=== PATIENT | female | born 1955 | race Caucasian/White ===

== ENCOUNTER → 2018-02-01 13:15 | Outpatient (CLI) | payer BC, SELFPAY ==
--- NOTE | 2018-02-01 13:18 | RAD_ITS ---
STUDY: X-RAY - LEFT HAND REASON FOR EXAM: Female, 62 years old. Chronic pain at the base of the thumb. TECHNIQUE: 3 view(s) of the hand. COMPARISON: None. FINDINGS: Normal radiocarpal articulation. Normal distal radioulnar joint. Normal visualized carpal bones. There is degenerative joint disease of the scaphotrapezium / trapezoid articulation. The remainder of the carpal articulations are normal. There is degenerative arthrosis of the carpometacarpal (CMC) articulation of the thumb. Normal second through fifth carpometacarpal joints. Normal metacarpi. There is minimal degenerative arthrosis of the first metacarpophalangeal (MCP) joints. Normal interphalangeal joint of the thumb. Normal proximal and distal phalanges of the thumb. Normal metacarpophalangeal joints of the second through fifth fingers. There is diffuse articular joint space narrowing of the proximal and distal interphalangeal joints of the second through fifth fingers, but without erosive changes or periarticular soft tissue swelling. Normal phalanges of the second through fifth fingers. The soft tissue structures are unremarkable. RAD/Hand Min 3 Views IMPRESSION: Degenerative changes of the hand and wrist most marked at the first carpometacarpal joint. Electronically Signed: Corwin Wright DO at 16:23 EST Tel [phone], Service support ,
--- NOTE | 2018-02-01 13:18 | RAD_ITS ---
STUDY: X-RAY - RIGHT HAND REASON FOR EXAM: Female, 62 years old. Pain at the base of the thumb. TECHNIQUE: 3 view(s) of the hand. COMPARISON: None. FINDINGS: There is joint space narrowing of the radiocarpal articulation consistent with degenerative arthrosis. Normal distal radioulnar joint. Normal visualized carpal bones. Normal carpal articulations There is severe degenerative arthrosis of the carpometacarpal articulation of the thumb with lateral subluxation of the first metacarpus. Normal second through fifth carpometacarpal joints. Normal metacarpi. Normal metacarpophalangeal joint of the thumb. Normal interphalangeal joint of the thumb. Normal proximal and distal phalanges of the thumb. Normal metacarpophalangeal joints of the second through fifth fingers. There is diffuse articular joint space narrowing of the proximal and distal interphalangeal joints of the second through fifth fingers, but without erosive changes or periarticular soft tissue swelling. Normal phalanges of the second through fifth fingers. The soft tissue structures are unremarkable. RAD/Hand Min 3 Views IMPRESSION: No acute fracture or dislocation. Severe degenerative changes at the base of the thumb. Electronically Signed: Collin Greco MD at 16:25 EST , Service support ,
== END ==
PROVIDERS: Family Provider Family Medicine; PCP Family Medicine; Referring Provider Orthopaedic Surgery; Visit Provider Orthopaedic Surgery
DX: M79.644 Pain in right finger(s) (principal); M79.645 Pain in left finger(s)
CPT/HCPCS: 73130

== ENCOUNTER → 2019-03-22 13:20 | Outpatient (CLI) | payer BC, SELFPAY ==
[2019-03-22 09:16] VITALS: BMI 23.9
[2019-03-24 13:37] LABS: HPV APTIMA, High Risk Negative (Negative)
== END ==
PROVIDERS: PCP Family Medicine; Referring Provider Nurse Practitioner Women's Health; Visit Provider Nurse Practitioner Women's Health
DX: Z12.4 Encounter for screening for malignant neoplasm of cervix (principal)
CPT/HCPCS: 87624; 88175; G0145

== ENCOUNTER → 2020-01-10 13:45 | Outpatient (CLI) | payer BC, SELFPAY ==
[2019-03-22 09:16] VITALS: BMI 23.9
== END ==
PROVIDERS: PCP Family Medicine; Referring Provider Family Medicine; Visit Provider Family Medicine
DX: Z20.828 Contact with and (suspected) exposure to other viral communicable diseases (principal)
CPT/HCPCS: 87635; U0003

== ENCOUNTER → 2020-04-22 09:43 | Outpatient (CLI) | payer BC, SELFPAY ==
[2019-03-22 09:16] VITALS: BMI 23.9
--- NOTE | 2020-04-22 09:48 | US_ITS ---
STUDY: SUPERFICIAL ULTRASOUND - POPLITEAL FOSSA. REASON FOR EXAM: Female, 64 years old. RIGHT KNEE PAIN X 3 MONTHS. INTERMITTENT PALPABLE LUMP TECHNIQUE: A superficial ultrasound was performed with real-time and static whittaker-scale imaging. COMPARISON: None. FINDINGS: Sonographic evaluation of the popliteal fossa was performed. No sonographic abnormality is seen. US/Ext Non Vasc Limited/Soft Tiss IMPRESSION: No sonographic abnormality is seen. Electronically Signed: Robert Ferrara MD at 12:49 EST , Service support ,
== END ==
PROVIDERS: PCP Family Medicine; Referring Provider Family Medicine; Visit Provider Family Medicine
DX: M71.21 Synovial cyst of popliteal space [Baker], right knee (principal)
CPT/HCPCS: 76882

== ENCOUNTER 2020-07-10 11:30 | Outpatient (RCR) | payer BC, SELFPAY ==
[2019-03-22 09:16] VITALS: BMI 23.9
--- NOTE | 2020-05-08 11:52 | HP.PTEVAL_ITS ---
Patient's Visit Information PARVIZ BARAHONA is a 64 year old F referred to Physical Therapy by Dr. Power Nair MD with a diagnosis of R knee pain.. Date of Evaluation: 05/08/20 Physical Therapist: Sarbjit Zavala DPT, OCS, CSCS - Visit Plan Frequency: 2-3x /Week Duration: 4-6 Weeks Plan: 2-3x/week for 3-6 weeks as needed for... 1. rollout and stretch to R ITB/HS/quad. US as needed nonthermal to lateral R patella. 2. strength VMO and hip stabs as toerated. 3. TENS and ice if painful at rest. activity modification, monitor for other knee problems. - Subjective R knee hurts for no good reason. Got twinge in back of leg in january with bending in yoga. Went to doctor saying as she may have a Bakers Cyst. US showed nothing. Went back to Dr. Frances and diagnosed with popliteus strain. Treated with rest and elevation and felt better at times. Normal exercise is walking on road for one hour, increased walking due to spring and went down hill for 3/4 mile and that may have made it worse(about three weeks ago). Took it easy for a while but was having a hard time walking on it. Today feels better than usual, some days she could not have walked in here. Dr. Frances said no hills and stay level ground. Walked 1/8 mile and then could hardly put weight through it. Also loves biking 15+miles and that does not cause any problem. Sleep is OK. 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 Needs to wrok on uneven ground and is very active. Now spends day sedentary and taxes and paper work. can stand at counter but puts weight through other leg. Can do yoga without twisting. - Pain L knee pain Pain Intensity (Out of 10): 0 Pain Intensity Range: 0, 9 Comment: anteriorly. - Objective Walks I but hesitant with R WB and slow, picks up speed as confidence improves. Trasfers slow But I. Stands with more weight through L side. Steps reciprocal but hesitant and painful R lateral knee up and down. Tender to touch lateral patella. - bounce home, varus, valgus and ant drawer. + patellar grind test with grinding. ITB R max tight and L mod tight. quads and HS min tight B. AROM hips and knees WFL and symmetrical withotu increased pain. Ankles fulla nd painfree. 4/5 strength quad and extension and HSC B without increased pain. 3_ hip abd, rotations strength. ankle strength 4+. Sensation WNl to gross light touch. - Balance Scores Functional Gait Assessment Score: 27 % Disability: 10.0000 - Goals Goal 1:: Walk and trasnfer without hesitation or pain increase. Goal Time Frame: 4-6 Weeks Goal 2:: I approp HEP to minimize further symptoms Goal Time Frame: 4-6 Weeks Goal 3:: Pt feel 90% better adn 1/10 pain at worst Goal Time Frame: 4-6 Weeks Goal 4:: LEFS 55/80 Goal Time Frame: 4-6 Weeks - Rehabilitation Potential Physical Therapy Diagnosis: R knee pain ITB, PFS Rehabilitation Potential: Questionable - Anticipated Interventions Patient/Client Instruction: Educate patient on: Condition, Plan of Care For the Purpose of:: To decrease pain, To increase ROM, To improve muscle performance and motor function, To increase tolerance to activity/condition/position, To improve ability of physical actions for home/community/work/leisure Therapeutic Exercise to Include: Strength training, Flexibilty training, Gait and locomotor training, Neuromotor development For the Purpose of:: To decrease pain, To improve muscle performance and motor function, To increase tolerance to activity/condition/position, To improve ability of physical actions for home/community/work/leisure Manual Therapy Techniques to Include: Passive ROM, Soft tissue mobilization For the Purpose of:: To decrease pain, To increase ROM TENS: Yes Cryotherapy (ice pack, ice massage): Yes Ultrasound (thermal/non thermal): Yes - nonthermal R patella lateal. For the Purpose of:: To decrease pain, To decrease swelling/inflammation Thank you for the opportunity to evaluate your patient. For Medicare and Medicare HMO plans, please review the plan of care and approve it. It will need to be FAXED BACK to us at [phone] for Medicare purposes. For Medicare only, by signing this I certify the plan of care. Please let me know if there are questions or concerns regarding this plan of care. Physician Signature:__ Date:
--- NOTE | 2020-06-03 11:00 | HP.PTREVAL_ITS ---
Dr. Power Nair MD, It has been my pleasure to treat PARVIZ BARAHONA over the last 7 visits for R knee pain.. Please see the progress note below for an update on the physical therapy plan of care! Subjective: R knee is doing better. Taking ibuprofen regularly. Sleeping is still the hardest to get comfortable. Doing exercises at home in am and early eveing adn feels better after stretching adn strengthening. No f/u scheduled with doctor Korey right now. Biking 20 miles without difficulty Objective/Function: Full aROM with some slight pain end R knee flexion. Walks without antalgia. Strength is 4+/5 in LE without pain. Steps show discomfort descending with R. ITB tenderness R >L. Coming along slowly. Plan Plan: 2xweek for 2 then 1x/week for 2 for... 1. continue roloout adn stretch to quad and ITB R, add hip flexor stretch to HEP. 2. Pt to do NWB strength at home and progress to WB trength R knee adn hip to toerance. 3. Verbally monitor walking program at home starting at 1/2 mile and progressing as pain allows. Approriate to [id number] with fair prognosis to current and new goal. Goals Goal 1:: Walk and trasnfer without hesitation or pain increase. Goal Time Frame: 4-6 Weeks Goal Progress: Goal Met Goal 2:: I approp HEP to minimize further symptoms Goal Time Frame: 4-6 Weeks Goal Progress: Goal Met Goal 3:: Pt feel 90% better adn 1/10 pain at worst Goal Time Frame: 4-6 Weeks Goal Progress: 50% Goal 4:: LEFS 55/80 Goal Time Frame: 4-6 Weeks Goal Progress: Progressing Goal 5:: Walk 2 miles without pain. Goal Time Frame: 4-6 Weeks Goal Progress: NEW GOAL Anticipated Interventions Patient/Client Instruction: Educate patient on: Condition, Plan of Care For the Purpose of:: To decrease pain, To increase ROM, To improve muscle performance and motor function, To increase tolerance to activity/c ondition/position, To improve ability of physical actions for home/community/work/leisure Therapeutic Exercise to Include: Strength training, Flexibilty training, Gait and locomotor training, Neuromotor development For the Purpose of:: To decrease pain, To improve muscle performance and motor function, To increase tolerance to activity/condition/position, To improve ability of physical actions for home/community/work/leisure Manual Therapy Techniques to Include: Passive ROM, Soft tissue mobilization For the Purpose of:: To decrease pain, To increase ROM TENS: Yes Cryotherapy (ice pack, ice massage): Yes Ultrasound (thermal/non thermal): Yes - nonthermal R patella lateal. For the Purpose of:: To decrease pain, To decrease swelling/inflammation Please do not hesitate to contact me at [phone] by phone or if you have questions or concerns regarding this new plan of care! Sincerely, Sarbjit Zavala, DPT, OCS, CSCS
--- NOTE | 2020-07-10 11:49 | HP.PTDCSUM ---
It has been my pleasure to treat PARVIZ BARAHONA referred by Dr. Power Nair MD, with the diagnosis of R knee pain. for a total of 15 visit(s). Discharge Date: 07/10/20 Please see the following information for a summary of their discharge status. Subjective: A lot better. Not much pain in the last week. Started back to yoga and doing it 2x/week. Has to modify some WB knee bending ex. Walking 3-6 miles a ttimes. Down hill can feel it a little bit especially if pulled by dog. Gaining strength. Strengthening regularly. L knee pain Pain Intensity (Out of 10): 0 R knee Pain Intensity (Out of 10): 0 % Improvement: 95 Objective/Function: Full aROM with symmetrical flexibility. Strength is 4+/5 B knee flex and ext without pain. Steps reciprocal without pain. walking normal. Goal 1:: Walk and trasnfer without hesitation or pain increase. Goal Progress: Goal Met Goal 2:: I approp HEP to minimize further symptoms Goal Progress: Goal Met Goal 3:: Pt feel 90% better adn 1/10 pain at worst Goal Progress: Goal Met Goal 4:: LEFS 55/80 Goal Progress: Goal Met Goal 5:: Walk 2 miles without pain. Goal Progress: Goal Met Plan: d/c to HEP If there are questions or concerns regarding this patient's physical therapy, please feel free to call me at [phone]. Thank you for the referral of this patient. Sincerely, Sarbjit Zavala, DPT, OCS, CSCS
== END 2020-07-10 19:00 | disposition home or self-care (01) ==
LOC: PT 11:30
PROVIDERS: PCP Family Medicine; Referring Provider Family Medicine; Visit Provider Family Medicine
DX: M25.569 Pain in unspecified knee (principal)
CPT/HCPCS: 97035; 97110; 97140; 97162; 97164; 97530

== ENCOUNTER → 2020-09-12 13:35 | Outpatient (CLI) | payer BC, SELFPAY ==
[2020-08-20 08:41] VITALS: BMI 25.2
--- NOTE | 2020-09-12 13:39 | BI_ITS ---
MAMMOGRAPHY - BILATERAL SCREENING REASON FOR EXAM: Female, 65 years old. Routine annual screening examination. PERTINENT HISTORY: Grandmother with breast cancer. Remote left breast biopsy. TECHNIQUE: Digital bilateral breast brad (3D mammographic acquisition) in the CC and MLO projections. 2-D mediolateral oblique (MLO) and craniocaudad (CC) views of both breasts were obtained. CAD: Full Field Digital Mammography with Computer Added Detection was performed. COMPARISON: Comparison is made with prior outside examination dated 01/30/2019. FINDINGS: Breast Composition: The breasts are heterogeneously dense, which may obscure small masses. There are no dominant masses or suspicious calcifications. Stable benign-appearing bilateral axillary lymph nodes. No other significant abnormalities are identified. There has been no significant change since the prior study. BI/SCRN MAMM (CAD)W/BRAD BILAT IMPRESSION: Stable bilateral screening mammogram. Yearly follow-up mammogram recommended. (A) ASSESSMENT CATEGORY: BIRADS Category 2: Benign. A letter regarding these results will be sent to the patient by the facility within 30 days. Approximately 10% of breast cancers are not detected by mammography. A normal mammogram should not delay biopsy of a clinically suspicious abnormality. [id number] Electronically Signed: Robert Ferrara MD at 14:38 EDT , Service support ,
--- NOTE | 2020-09-12 14:08 | BD_ITS ---
STUDY: DUAL ENERGY X-RAY ABSORPTIOMETRY / DXA REASON FOR EXAM: Female, 65 years old. Screening mother w osteoporosis TECHNIQUE: Bone Mineral Density (BMD) measurements of lumbar spine and bilateral hips were obtained. COMPARISON: Comparison is made with prior study of 05/14/2016. FINDINGS: Lumbar Spine (L1-L4): g/cm2 (0.926) / T-score (-0.8) / Z-score (0.8) Findings are suggestive of normal bone density with a low fracture risk. Left Femur Total: g/cm2 (0.879) / T-score (-0.5) / Z-score (0.7) Left Femoral Neck: g/cm2 (0.760) / T-score (-0.8) / Z-score (0.7) Right Femur Total: g/cm2 (0.844) / T-score (-0.8) / Z-score (0.4) Right Femoral Neck: g/cm2 (0.744) / T-score (-0.9) / Z-score (0.5) The T-Scores on the most recent prior examination were: Lumbar Spine (L1-L4): There has been worsening of bone density since the previous examination. Left Femur Total: which represents a worsening of 4.4%. Right Femur Total: which represents a worsening of 7.3%. BD/Dexa Bone Density Study IMPRESSION: The patient is considered normal as outlined below according to World Payam Organization (WHO) criteria with a low fracture risk. There has been worsening of bone density since the previous examination. Reference Information: The T-score is the number of standard deviations above or below the standard which is normal for young adults at their peak bone mineral density. The World Health Organization (WHO) interprets the T-scores as follows: Above -1 Normal bone density Between -1 and -2.5 Osteopenia Equal to / or below -2.5 Osteoporosis As a practical clinical guideline, osteopenia may be graded as follows: Mild -1 through -1.5 Moderate -1.6 through -2.0 Severe -2.1 through -2.4 The Z-score is the number of standard deviations above or below age-matched controls. A Z-score of less than -1.5 would be considered abnormal. References: 1. NIH Osteoporosis and Related Bone Diseases www osteo.org 2. International Society for Clinical Densitometry www iscd.org 3. National Osteoporosis Foundation www nof.org Electronically Signed: Robert Ferrara MD at 12:33 EDT , Service support ,
== END ==
PROVIDERS: PCP Family Medicine; Referring Provider Nurse Practitioner Women's Health; Visit Provider Nurse Practitioner Women's Health
DX: Z12.31 Encounter for screening mammogram for malignant neoplasm of breast (principal); Z13.820 Encounter for screening for osteoporosis; Z80.3 Family history of malignant neoplasm of breast; Z82.62 Family history of osteoporosis
CPT/HCPCS: 77063; 77067; 77080

== ENCOUNTER → 2022-04-07 | Outpatient (CLI) | payer MEDICARE, BC, SELFPAY ==
--- NOTE | 2022-04-07 11:06 | BI_ITS ---
MAMMOGRAPHY - BILATERAL SCREENING REASON FOR EXAM: Female, 66 years old. Routine annual screening examination. PERTINENT HISTORY: Grandmother with breast cancer. Remote left breast biopsy. TECHNIQUE: Digital bilateral breast brad (3D mammographic acquisition) in the CC and MLO projections. 2-D mediolateral oblique (MLO) and craniocaudad (CC) views of both breasts were obtained. CAD: Full Field Digital Mammography with Computer Added Detection was performed. COMPARISON: Comparison is made with prior examination of 09/12/2020. FINDINGS: Breast Composition: The breasts are heterogeneously dense, which may obscure small masses. There are no dominant masses or suspicious calcifications. Stable small benign-appearing bilateral axillary lymph nodes. No other significant abnormalities are identified. There has been no significant change since the prior study. BI/SCRN MAMM (CAD)W/BRAD BILAT IMPRESSION: Stable bilateral screening mammogram. Yearly follow-up mammogram recommended. (A) ASSESSMENT CATEGORY: BIRADS Category 2: Benign. A letter regarding these results will be sent to the patient by the facility within 30 days. Approximately 10% of breast cancers are not detected by mammography. A normal mammogram should not delay biopsy of a clinically suspicious abnormality. [id number] Electronically Signed: Robert Ferrara MD at 12:49 EST ,
== END | disposition home or self-care (01) ==
LOC: OPBI 11:05
PROVIDERS: PCP Family Medicine; Referring Provider Nurse Practitioner Women's Health; Visit Provider Nurse Practitioner Women's Health
DX: Z12.31 Encounter for screening mammogram for malignant neoplasm of breast (principal)
CPT/HCPCS: 77063; 77067

== ENCOUNTER 2022-11-17 07:59 | Outpatient (CLI) | payer MEDICARE, BC, SELFPAY ==
[2022-11-17 10:20] LABS: Hematocrit 43.3 % (37-47); Hemoglobin 13.5 g/dL (12.0-15.0)
[2022-11-17 10:50] LABS: Alanine Aminotransfer ALT/SGPT 27 U/L (13-56); Anion Gap 4 (5-15); BUN 20 mg/dL (7-18); Chloride 107 mmol/L (98-107); Cholesterol 194 mg/dL (200); Creatinine, Serum 0.77 mg/dL (0.55-1.02); EST Glomerular Filtration Rate 80 mL/min (>60); Est Glom Filt Rate - Afr Amer 96 mL/min (>60); Glucose 96 mg/dL (74-106); High Density Lipoprotein 73 mg/dL; Potassium 3.8 mmol/L (3.5-5.1); Sodium Level 140 mmol/L (136-145); Triglycerides 47 mg/dL; Very Low Density Lipoprotein 9 mg/dL (5-40)
[2022-11-17 11:28] LABS: Hepatitis C Antibody Non-Reactive (Nonreactive)
== END 2022-11-17 23:59 | disposition home or self-care (01) ==
LOC: MTLAB 08:01
PROVIDERS: PCP Family Medicine; Referring Provider Family Medicine; Visit Provider Family Medicine
DX: I34.1 Nonrheumatic mitral (valve) prolapse (principal); B19.20 Unspecified viral hepatitis C without hepatic coma; Z13.220 Encounter for screening for lipoid disorders
CPT/HCPCS: 36415; 80048; 80061; 84460; 85014; 85018; 86803

== ENCOUNTER → 2023-05-26 | Outpatient (CLI) | payer MEDICARE, BC, SELFPAY ==
--- NOTE | 2023-05-26 08:11 | BI_ITS ---
MAMMOGRAPHY - BILATERAL SCREENING REASON FOR EXAM: Female, 67 years old. Routine annual screening examination. PERTINENT HISTORY: Grandmother with breast cancer. Remote left excisional breast biopsy. TECHNIQUE: Digital bilateral breast brad (3D mammographic acquisition) in the CC and MLO projections. 2-D mediolateral oblique (MLO) and craniocaudad (CC) views of both breasts were obtained. CAD: Full Field Digital Mammography with Computer Added Detection was performed. COMPARISON: Comparison is made with prior study dated April 07, 2022 and September 12, 2020. FINDINGS: Breast Composition: The breasts are heterogeneously dense, which may obscure small masses. There are no dominant masses or suspicious calcifications. Stable small benign-appearing bilateral axillary lymph nodes. No other significant abnormalities are identified. There has been no significant change since the prior study. BI/SCRN MAMM (CAD)W/BRAD BILAT IMPRESSION: Stable bilateral screening mammogram. Yearly follow-up mammogram recommended. (A) ASSESSMENT CATEGORY: BIRADS Category 2: Benign. A letter regarding these results will be sent to the patient by the facility within 30 days. Approximately 10% of breast cancers are not detected by mammography. A normal mammogram should not delay biopsy of a clinically suspicious abnormality. [id number] Electronically Signed: Robert Ferrara MD at 9:35 EDT ,
== END | disposition home or self-care (01) ==
LOC: OPBI 08:11
PROVIDERS: PCP Family Medicine; Referring Provider Nurse Practitioner Women's Health; Visit Provider Nurse Practitioner Women's Health
DX: Z12.31 Encounter for screening mammogram for malignant neoplasm of breast (principal); Z80.3 Family history of malignant neoplasm of breast
CPT/HCPCS: 77063; 77067

== ENCOUNTER 2023-09-22 07:59 | Outpatient (CLI) | payer MEDICARE, BC, SELFPAY ==
[2023-09-22 10:15] LABS: Absolute Lymphocyte Count 1.86 X10^3/uL (0.83-4.51); Absolute Neutrophil Count 4.1 X10^3/uL (2.0-7.7); Basophil# 0.03 X10^3/uL; Basophil% 0.5 % (0-1); Eosinophil# 0.13 X10^3/uL; Hemoglobin 13.2 g/dL (12.0-15.0); Lymphocyte # 1.86 X10^3/ul (0.83-4.51); Lymphocyte % 28.2 % (19-41); Mean Corp Hgb Conc 31.4 g/dL (32-36); Mean Corpuscular Hgb 27.4 pg (27.0-32.0); Mean Corpuscular Volume 87.1 fL (81-99); Mean Platelet Vol. 10.2 fl (6.2-12.0); Monocyte# 0.46 X10^3/uL; NRBC Flagged by Analyzer 0 % (0-5); Platelet Count 301 K/mm3 (150-450); RBC Distribution Width CV 13.4 % (11.6-14.6); RBC Distribution Width SD 42.9 fl (35.1-43.9); Red Blood Count 4.82 M/mm3 (4.2-5.4); White Blood Count 6.6 K/mm3 (4.4-11.0)
[2023-09-22 10:42] LABS: ALB/GLOB Ratio 1.1 RATIO (0.9-2.4); AST(SGOT) 21 U/L (15-37); Alanine Aminotransfer ALT/SGPT 24 U/L (13-56); Albumin, Serum 3.8 g/dL (3.2-5.0); Alkaline Phosphatase 91 U/L (45-117); Anion Gap 6 (5-15); BUN 16 mg/dL (7-18); Calcium,Total 9.2 mg/dL (8.5-10.1); Chloride 107 mmol/L (98-107); Cholesterol 206 mg/dL (200); Creatinine, Serum 0.73 mg/dL (0.55-1.02); EST Glomerular Filtration Rate 85 mL/min (>60); Est Glom Filt Rate - Afr Amer 103 mL/min (>60); Globulin 3.5 g/dL (2.2-4.2); Glucose 101 mg/dL (74-106); High Density Lipoprotein 84 mg/dL; Potassium 3.9 mmol/L (3.5-5.1); Protein, Total 7.3 g/dL (6.4-8.2); Sodium Level 140 mmol/L (136-145); Triglycerides 64 mg/dL; Very Low Density Lipoprotein 13 mg/dL (5-40)
== END 2023-09-22 23:59 | disposition home or self-care (01) ==
LOC: MTLAB 08:01
PROVIDERS: PCP Family Medicine; Referring Provider Family Medicine; Visit Provider Family Medicine
DX: Z13.220 Encounter for screening for lipoid disorders (principal); I34.1 Nonrheumatic mitral (valve) prolapse; H02.30 Blepharochalasis unspecified eye, unspecified eyelid
CPT/HCPCS: 36415; 80053; 80061; 85025

== ENCOUNTER 2023-10-01 05:56 | Day surgery (SDC) | payer MEDICARE, BC, SELFPAY ==
[2023-10-01] VITALS (10 sets, daily range): BP systolic 129–157; BP diastolic 56–75; PULSE 58–91; RESP 16–18; TEMP 36.1–37.1; O2SAT 96–99; BMI 24.0
[2023-10-01] MEDS: Lactated Ringers 1,000 ML 15 ML IV (06:33)
--- NOTE | 2023-10-01 07:20 | PCM.PRE.AN2 ---
ASA Classification* ASA Classification ASA Classification: 2 Assessment & Plan Anesthesia* Anesthesia Assessment Anesthesia Assessment: Discussed sedation and/or anesthesia options, risks, benefits, and alternatives with patient/parents/legal guardian/POA. Questions invited. The patient/parents/legal guardian/POA seems to understand and agrees to proceed with anesthesia plan. Reviewed the physical assessment, medical history, allergy history and patient home medications list prior to surgery/procedure/anesthetic and documented any changes. Performed airway and anesthesia risk assessments. Anesthesia Type Anesthesia Type: General Anesthesia Focused Assessment* Temperature: 98.7 F Pulse Rate: 58 Blood Pressure: 157/56 Respiratory Rate: 16 Pulse Ox: 99 Airway Assessment Mouth opens: >3 cm Mallampati Score: II Focused Labs Anesthesia Preop lab: CBC WBC 6.6 K/mm3 (4.4-11.0) 09/22/23 08:03 RBC 4.82 M/mm3 (4.2-5.4) 09/22/23 08:03 Hgb 13.2 g/dL (12.0-15.0) 09/22/23 08:03 Hct 42.0 % (37-47) 09/22/23 08:03 Plt Count 301 K/mm3 (150-450) 09/22/23 08:03 CHEMISTRY Potassium 3.9 mmol/L (3.5-5.1) 09/22/23 08:03 Sodium 140 mmol/L (136-145) 09/22/23 08:03 BUN 16 mg/dL (7-18) 09/22/23 08:03 Creatinine 0.73 mg/dL (0.55-1.02) 09/22/23 08:03 Glucose 101 mg/dL (74-106) 09/22/23 08:03 COAG Pre-Assessment Diagnosis/Proposed Procedure Planned Operative Procedure(s): Bilateral Upper Blepharoplasty Anesthesia History Anesthesia History - business office specialist: Anesthesia History - business office specialist Hx Hospitalization No 09/17/23 09:26 Any Problems With Anesthesia No 09/17/23 09:26 Cholinesterase deficiency No 09/17/23 09:26 You/Your Family Experience No 09/17/23 09:26 fever (hyperthermia) with Relationship Recent Exposure to Contagious No 10/01/23 06:28 Disease Does patient have nerve No 09/17/23 09:26 stimulator Patient instructed to have device shut off --Does patient have Pacemaker No 10/01/23 06:28 or ICD? When Was Last Pacemaker Check QUESTION #4 FULL TEXT: You/Your Family Experience fever (hyperthermia) with Anesthesia Last Oral Intake Last Oral intake: Last Oral Intake NPO since Meds taken in AM with sips of water? Meds patient instructed to take am of surgery PONV PONV - business office specialist: PONV - business office specialist Female Yes 09/17/23 09:26 HX of Motion Sickness Yes 09/17/23 09:26 HX of N/V After Surgery No 09/17/23 09:26 Non-Smoker Yes 09/17/23 09:26 Duration of Surgery greater Yes 09/17/23 09:26 than 60 minutes Number of Risk Factors 4 09/17/23 09:26 PONV Score Severe Risk 09/17/23 09:26 Height & Weight Height & Weight: Anesthesia: Height & Weight Height 5 ft 3 in 10/01/23 06:28 Weight: 61.4 kg 10/01/23 06:28 Body Mass Index (BMI) 24.0 10/01/23 06:28 Respiratory Assessment Respiratory Assessment - business office specialist: Respiratory Tract Infection Hx - business office specialist Hx Respiratory Tract Infection No 09/17/23 09:26 STOP Sleep Apnea STOP Sleep Apnea - business office specialist: STOP Sleep Apnea - business office specialist Hx Hypertension No 09/17/23 09:26 Hx Sleep Apnea No 09/17/23 09:26 CPAP BIPAP Do you snore loudly (louder No 09/17/23 09:26 than talking or can be heard Do you often feel tired/ No 09/17/23 09:26 fatigued/ sleepy during daytime? Has anyone observed you stop No 09/17/23 09:26 breathing during sleep? STOP Results Negative 09/17/23 09:26 QUESTION #5 FULL TEXT : Do you snore loudly (louder than talking or can be heard through closed doors)? Tobacco Use History Tobacco Use History - business office specialist: Tobacco Use History - business office specialist Tobacco Use Smoking Status Never smoker 09/17/23 09:26 Hx Tobacco Use No 09/17/23 09:26 Years Smoking Packs Smoked per Day Smoking Cessation Date was within the last 15 years Hx Smoking Cessation Date Hx Smoking Cessation Counseling Hematologic Medial History Hematologic Hx - business office specialist: Hematologic Medical Hx - hydroblaster Hx of Blood Transfusion No 09/17/23 09:26 Hx of Transfusion in last 3 No 09/17/23 09:26 Months Date of Last Transfusion (if within last 3 months) Ever experience any problems No 09/17/23 09:26 with transfusion(s)? Specify any problems Hx of Preganancy in last 3 No 09/17/23 09:26 Months Nurse Filling Out Transfusion VCHRISTIN 09/17/23 09:26 & Questions: Date: 09/17/23 09/17/23 09:26 Time: 09:27 09/17/23 09:26 Patient unable to answer at this time (ie. confused, unrespo /Reproduction History /Reproductive History - business office specialist: /Reproductive Hx- business office specialist Hx Now Gestational Age (in weeks): EDC: Hx Hx Para Hx Section SAB No 09/17/23 09:26 Active Medications Active Medications: Current Medications Generic Name Dose Route Start Last Admin Trade Name Freq PRN Reason Stop Dose Admin Cefazolin Sodium 2 gm/ Sodium 110 mls @ 150 mls/hr 10/01/23 07:30 Chloride IV 10/01/23 08:13 PREOP ONE Lactated Ringer's 1,000 mls @ 15 mls/hr 10/01/23 06:30 10/01/23 06:33 IV 15 mls/hr .Q48H PACHECO Administration PFSH Medical History Wears glasses Wears contact lenses Post-menopausal Cancer Anxiety Alcohol use Arthritis Non-smoker History of echocardiogram Osteoarthritis Skin cancer Mitral valve problem Home Medications ?Medication ?Instructions ?Recorded ?Last Taken ?Type zinc acetate 50 mg (zinc) capsule 50 mg PO DAILY 06/09/23 09/12/23 History omega 7-wdy-yan-fish oil 1,200 mg 1 cap PO DAILY 09/17/23 09/12/23 History (144 mg-216 mg) capsule (Fish Oil) polypodium leucotomos extract 240 2,400 mg PO DAILY 09/17/23 09/28/23 History mg capsule (Heliocare) turmeric 400 mg capsule 400 mg PO DAILY 09/17/23 09/12/23 History cephalexin 500 mg capsule 500 mg PO BID #14 caps 09/21/23 Unknown Rx erythromycin 5 mg/gram (0.5 %) eye 1 applic ophthalmic (eye) DAILY 09/21/23 Unknown Rx ointment #3.5 grams Allergy/AdvReac Type Severity Reaction Status Date / Time No Known Allergies Allergy Verified 09/21/23 09:06 Family History Mother Arthritis Hypertension Osteoporosis Grandmother Breast cancer Surgical History Status post Mohs surgery H/O vein stripping H/O foot surgery H/O hand surgery Social History number of children: 3 current occupational status: employed 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 Review of Systems (Anesthesia) ROS Narrative System reviewed and no additional complaints, except as documented.
--- NOTE | 2023-10-01 07:25 | PCM.HP.BLA ---
History and Physical Date of Admission: 10/01/23 Pt with bilateral dermatochalasis with obstruction of visual jean. She presents for upper blepharoplasty. There are no changes to the H&P dated 09/10/23. Informed consent was obtained for bilateral upper blepharoplasty. Assessment & Plan Assessment/Plan (1) Decreased peripheral vision of both eyes: (2) Dermatochalasis of both upper eyelids: PLAN: Plan Pt for bilateral upper blepharoplasty.
[2023-10-01] MEDS: Cefazolin 2 GM in 0.9% Normal Saline (100mL Bag) 100 ML IV (07:30)
[2023-10-01] MEDS: Tetracaine 0.5% Ophthalmic Bottle 1 DRP (07:50)
[2023-10-01] MEDS: Povidone Iodine 30 ML Opthalmic Sol 1 DRP (07:55)
[2023-10-01] MEDS: Lidocaine 1% /Epi 1:100 (20ml) 20 ML Vial (07:58)
[2023-10-01] MEDS: Erythromycin Base 1 OPTH.TUBE 1 APPLIC (07:58)
[2023-10-01] MEDS: EPINEPHrine Nasal 0.1% 30 ML Bottle OPERA.SITE (07:58)
--- NOTE | 2023-10-01 09:11 | EX.PCM.DISCH ---
Discharge Instructions Dressing / Incision Additional Dressing/Incision Instructions:: Follow the instructions given in the office Follow Up Care Please Follow Up With: Virginie Alvarado MD When: as scheduled in 1 week Test Results: Test results from this visit will be discussed in further detail at your follow-up appointment, if applicable. Discharge Plan Admission Attending Provider: Virginie Alvarado Primary Care Provider: Sarbjit Frances Instructions Print Language: Yemeni Discharge Orders/Prescriptions Prescriptions: No Action zinc acetate 50 mg (zinc) capsule 50 mg PO DAILY cephalexin 500 mg capsule 500 mg PO BID Qty: 14 0RF erythromycin 5 mg/gram (0.5 %) ointment 1 applic ophthalmic (eye) DAILY Qty: 3.5 0RF turmeric 400 mg capsule 400 mg PO DAILY omega 0-pqb-ftd-fish oil [Fish Oil] 1,200 (144-216) mg capsule 1 cap PO DAILY Heliocare 240 mg capsule 2,400 mg PO DAILY Referrals / Follow Up: Sarbjit Frances MD [Primary Care Provider] - Disposition Disposition (needs filled in before D/C Order can be placed): Home, Self Care
--- NOTE | 2023-10-01 09:14 | OP.PCM_ITS ---
Problems Associated Problem List Diagnoses (1) Decreased peripheral vision of both eyes: (2) Dermatochalasis of both upper eyelids: Report of Operation Date of Procedure: 10/01/23 Pre-Operative Diagnosis: Bilateral upper eyelid dermatochalasis and obstruction of visual jean Post-Operative Diagnosis: Same Surgery/Procedure Performed:: Bilateral upper blepharoplasty Surgeon: Virginie Alvarado telephone technician: MIRTA MONTANEZmedical physics teacher Type of Anesthesia: General Drains: None Estimated Blood Loss (mL): Minimal Description of Procedure: Patient presents today for upper blepharoplasty. She has documentation of obstruction of visual jean and presents for blepharoplasty to improve this. She is marked in the preop holding area prior to surgery. Informed consent was obtained. The patient is brought to the operating room and placed under general anesthesia in the supine position. The face is prepped and draped in the usual sterile fashion. 1% Xylocaine with epinephrine is initially used to inject the proposed incision sites. Following this, the outlined skin is removed. Hemostasis is controlled with bipolar cautery. A strip of orbicularis oculi is removed. Again meticulous hemostasis is obtained. The wound is tacked together using fast-absorbing gut. Cool compresses are placed on the eye and we directed our attention to the opposite side where an identical procedure was performed. Following this, a 5-0 Prolene suture was used to approximate skin edges in a subcuticular fashion. The suture ends are affixed to the skin at the rastafarian and glabella with Mastisol and Steri-Strips. Cool compresses are placed on the eye during the procedure as well as following it. She tolerated the procedure well was taken to the recovery area in an awakening in stable condition. Needle and sponge counts are correct. Complications None Admit VTE Documentation VTE Mechan Device Prophylaxis: SCD's
--- NOTE | 2023-10-01 09:29 | PCM.POST.ANE ---
Anesthesia: Postop Eval I Current Vital Signs Temperature: 97 F Pulse Rate: 91 Blood Pressure: 148/70 Respiratory Rate: 18 Pulse Ox: 98 Assessment Airway patent: Yes Spontaneous unlabored respirations: Yes nausea: No Vomiting: No Anesthesia Complication: No Fluid Hydration Crystalloid volume administer (ml): 1,500 Total IV fluid infused: 1,500 Progress Note Anesthesia document: Postop Eval 1 completed: Yes
--- NOTE | 2023-10-01 09:46 | NURSING ---
4X4'S TO BILAT EYES CHANGED AND NEW COLD MOISTENED 4X4'S APPLIED.
--- NOTE | 2023-10-01 09:49 | POSTOPAN2_ITS ---
Anesthesia Postop Eval I Sum Postop Eval Completion status Anesthesia document: Postop Eval 1 completed: Yes Anesthesia Postop Eval I Summary Anesthesia Postop Eval I Summary: Anesthesia Postop Eval I: Assessment Summary Airway patent Yes 10/01/23 09:29 HAND [email or web address] Spontaneous unlabored Yes 10/01/23 09:29 HAND [email or web address] respirations Mental status nausea No 10/01/23 09:29 HAND [email or web address] Vomiting No 10/01/23 09:29 HAND [email or web address] Anesthesia Postop Eval I: Fluid Summary Crystalloid volume administer 1,500 10/01/23 09:29 HAND [email or web address].CSIR (ml) Colloids volume administered ( ml) Blood Product volume administered (ml) Total IV fluid infused 1,500 10/01/23 09:29 HAND [email or web address].CSIR Anesthesia Postop Eval I: Summary Notes Anesthesia Complication No 10/01/23 09:29 HAND [email or web address].CSIR Anesthesia Complication Comment: Post-operative progress note Anesthesia: Postop Eval II Evaluation Mental status: Awake Pain Level: 1 nausea: No Vomiting: No Complications Anesthesia Complication: No
--- NOTE | 2023-10-01 09:49 | PCM.POSTANE2 ---
Anesthesia Postop Eval I Sum Postop Eval Completion status Anesthesia document: Postop Eval 1 completed: Yes Anesthesia Postop Eval I Summary Anesthesia Postop Eval I Summary: Anesthesia Postop Eval I: Assessment Summary Airway patent Yes 10/01/23 09:29 ADOLESCENT [email or web address] Spontaneous unlabored Yes 10/01/23 09:29 ADOLESCENT [email or web address].CSIR respirations Mental status nausea No 10/01/23 09:29 ADOLESCENT [email or web address].CSIR Vomiting No 10/01/23 09:29 ADOLESCENT [email or web address].CSIR Anesthesia Postop Eval I: Fluid Summary Crystalloid volume administer 1,500 10/01/23 09:29 ADOLESCENT PSYCHIATRIST.CSIR (ml) Colloids volume administered ( ml) Blood Product volume administered (ml) Total IV fluid infused 1,500 10/01/23 09:29 ADOLESCENT [email or web address].CSIR Anesthesia Postop Eval I: Summary Notes Anesthesia Complication No 10/01/23 09:29 ADOLESCENT [email or web address].CSIR Anesthesia Complication Comment: Post-operative progress note Anesthesia: Postop Eval II Evaluation Mental status: Awake Pain Level: 1 nausea: No Vomiting: No Complications Anesthesia Complication: No
--- NOTE | 2023-10-01 09:59 | SUR.PHASEII ---
4X4S CHANGED TO BILAT EYES, NEW COLD MOISTENED 4X4S APPLIED
== END 2023-10-01 11:53 | disposition home or self-care (01) ==
LOC: SDC 06:00 → AC 06:02
PROVIDERS: PCP Family Medicine; Referring Provider Plastic Surgery; Visit Provider Plastic Surgery
PROC: (CPT 15823; principal; 2023-10-01 07:20)
DX: H02.834 Dermatochalasis of left upper eyelid (principal); H02.832 Dermatochalasis of right lower eyelid; H53.453 Other localized visual field defect, bilateral
CPT/HCPCS: 15823; 00103; J7120; J2405

== ENCOUNTER → 2023-12-21 | Outpatient (CLI) | payer MEDICARE, BC, SELFPAY ==
--- NOTE | 2023-12-21 14:05 | BD_ITS ---
STUDY: DUAL ENERGY X-RAY ABSORPTIOMETRY / DXA REASON FOR EXAM: Female, 68 years old. M85.89 TECHNIQUE: Bone Mineral Density (BMD) measurements of lumbar spine and bilateral hips were obtained. COMPARISON: Comparison is made with prior study dated September 12, 2020. FINDINGS: Lumbar Spine (L1-L4): g/cm2 (1.004) / T-score (-0.4) / Z-score (1.5) Findings are suggestive of normal bone density with a low fracture risk. Left Femur Total: g/cm2 (0.848) / T-score (-0.8) / Z-score (0.6) Left Femoral Neck: g/cm2 (0.780) / T-score (-0.6) / Z-score (1.0) Right Femur Total: g/cm2 (0.837) / T-score (-0.9) / Z-score (0.5) Right Femoral Neck: g/cm2 (0.745) / T-score (-0.9) / Z-score (0.7) The T-Scores on the most recent prior examination were: Lumbar Spine (L1-L4): There has been improvement of bone density since the previous examination. Left Femur Total: which represents a worsening of 3.5%. Right Femur Total: which represents a worsening of 0.9%. BD/Dexa Bone Density Study IMPRESSION: The patient is considered normal as outlined below according to World [employer] Organization (WHO) criteria with a low fracture risk. There has been worsening of bone density since the previous examination. Reference Information: The T-score is the number of standard deviations above or below the standard which is normal for young adults at their peak bone mineral density. The World Health Organization (WHO) interprets the T-scores as follows: Above -1 Normal bone density Between -1 and -2.5 Osteopenia Equal to / or below -2.5 Osteoporosis As a practical clinical guideline, osteopenia may be graded as follows: Mild -1 through -1.5 Moderate -1.6 through -2.0 Severe -2.1 through -2.4 The Z-score is the number of standard deviations above or below age-matched controls. A Z-score of less than -1.5 would be considered abnormal. References: 1. NIH Osteoporosis and Related Bone Diseases www osteo.org 2. International Society for Clinical Densitometry www iscd.org 3. National Osteoporosis Foundation www nof.org Electronically Signed: Robert Ferrara MD at 14:32 EDT ,
== END | disposition home or self-care (01) ==
PROVIDERS: PCP Family Medicine; Referring Provider Family Medicine; Visit Provider Family Medicine
DX: M85.89 Other specified disorders of bone density and structure, multiple sites (principal)
CPT/HCPCS: 77080

== ENCOUNTER → 2024-11-23 | Outpatient (CLI) | payer MEDICARE, BC, SELFPAY ==
--- OUTSIDE RECORDS SUMMARY | 2024-11-23 08:28 | XMS RPT_ITS | CCD ---
Author Organization [facility] ion [facility] Care Team Providers Care Corner Brace Block Machine Operator Name Role Phone Emanuel ALEJANDRO, Faraz Sexton Unavailable [phone] ONESIMO GIANG Attending Unavailable ONESIMO GIANG Primary Care Unavailable ONESIMO GIANG Admitting Unavailable OENSIMO GIANG Attending Unavailable ONESIMO GIANG Primary Care Unavailable ONESIMO GIANG Admitting Unavailable MD Juan Daniel Sarbjit Primary Care Provider Unavailbroderick Frances MD Sarbjit Referring Provider Unavailable Yelitza LAWN SERVICE SUPERVISOR, LAWN SERVICE SUPERVISOR-C Lacey Attending Provider Dr. Sarbjit Frances Primary Care Provider [phone] Dr. Sarbjit Frances Referring Provider Dr. Virginie Alvarado Attending Provider Virginie Alvarado Referring Unavailable Virginie Alvarado Consulting Unavailable MychalazoVirginie larry Attending Unavailable Frances, Sarbjit Primary Care Unavailable Frances, Sarbjit Primary Care Unavailable MychalazoVirginie larry Attending Unavailable Frances, Sarbjit Referring Unavailable Frances, Sarbjit Primary Care Unavailable MychalazoPan larrya Attending Unavailable Frances, Sarbjit Referring Unavailable MychalazoPan larrya Attending Unavailable Frances, Sarbjit Referring Unavailable GhazoulVirginie Attending Unavailable Frances, Sarbjit Referring Unavailable Frances, Sarbjit Primary Care Unavailable Ghazoul, Virginie Referring Unavailable MychalazoPan larrya Attending Unavailable Frances, Sarbjit Primary Care Unavailable Lacey Torre Attending Unavailable Lacey Torre Referring Unavailable Frances, Sarbjit Primary Care Unavailable Frances, Sarbjit Attending Unavailable Frances, Sarbjit Referring Unavailable Frances, Sarbjit Attending Unavailable Frances, Sarbjit Referring Unavailable Frances, Sarbjit Primary Care Unavailable Frances, Sarbjit Primary Care Unavailable Virginie Alvarado Attending Unavailable Sarbjit Frances Referring Unavailable Sarbjit Frances Primary Care Unavailable Lacey Torre Attending Unavailable Sarbjit Frances Referring Unavailable Medications Current Medications Medication Drug Class(es) Dates Sig (Normalized) Sig (Original) terbinafine 250 mg oral tablet (1 source) Allylamine Antifungal Start: 04-27-2023 take 250 mg by mouth once daily Terbinafine Hcl Active 250 MG PO DAILY April 27, 2023 1:00am Completed/Discontinued Medications Medication Drug Class(es) Dates Sig (Normalized) Sig (Original) NICOTINAMIDE RIBOSIDE 250MG AND PTEROSTILBENE 50MG (1 source) Start: 02-08-2018 NICOTINAMIDE RIBOSIDE 250MG AND PTEROSTILBENE 50MG as directed Bhavana Allan LPN calcium carbonate 1500 mg oral tablet (2 sources) Start: 03-17-2022 End: 04-27-2023 take 1 tablet by mouth once daily Calcium Carbonate (Calcium 600) 600 mg calcium (1,500 mg) tablet Discontinued 600 MG PO DAILY March 17, 2022 1:00am April 27, 2023 3:09pm cholecalciferol 0.05 mg oral capsule (3 sources) Vitamin D Start: 08-20-2020 End: 04-27-2023 take 50 ug by mouth once daily Cholecalciferol (Vitamin D3) Discontinued 50 MCG PO DAILY August 20, 2020 12:00am April 27, 2023 3:09pm Start: 02-08-2018 VITAMIN D3 400 UNIT TABS 1 tablet daily CHOLECALCIFEROL [id number] Bhavana Allan LPN Polypodium Leucotomos (1 source) Start: 02-08-2018 POLYPODIUM LISA COTOMOS 240MG as directed Bhavana Allan LPN polypodiumleukolomas (2 sources) Start: 08-20-2020 End: 04-27-2023 polypodiumleukolomas Discont inued PO August 20, 2020 12:00am April 27, 2023 3:09pm Start: 08-20-2020 polypodiumleuk olomas Active PO August 19, 2020 11:00pm Pterostilbene (2 sources) Start: 03-17-2022 End: 04-27-2023 Pterostilbene Discontinued M G PO March 17, 2022 1:00am April 27, 2023 3:09pm Start: 03-17-2022 Pterostilbene Active MG PO March 17, 2022 12:00am RESVERATROL CAPS (1 source) Start: 02-08-2018 RESVERATROL CA PS 1 capsule daily (500mg) RESVERATROL CAPS [id number] Bhavana Allan ELECTRIC FRYING PAN REPAIRER Zinc (2 sources) Start: 08-20-2020 End: 04-27-2023 take 50 mg by mouth once daily Zinc Discontinued 50 MG PO DAILY August 20, 2020 12:00am April 27, 2023 3:09pm Start: 08-20-2020 take 50 mg by mouth once daily Zinc Active 50 MG PO DAILY August 19, 2020 11:00pm Problems Active Problems Problem Classification Problem Date Documented Date Episodic/Chronic Blindness and vision defects (4 sources) Decreased peripheral vision; Translations: [Other localized visual field defect, bilateral] Onset: 09-21-2023 04-27-2023 Episodic Menopausal disorders (2 sources) Atrophic vaginitis; Translations: [Postmenopausal atrophic vaginitis] 08-20-2020 Chronic Osteoarthritis (2 sources) Unilateral primary osteoarthritis of first carpometacarpal joint, right hand; Translations: [Unilateral primary osteoarthritis of first carpometacarpal joint, left hand] Onset: 02-10-2018 02-10-2018 Chronic Other bone disease and musculoskeletal deformities (1 source) Other specified disorders of bone density and structure, multiple sites; Translations: [Other specified disorders of bone density and structure, multiple sites] Onset: 01-11-2024 Episodic Other eye disorders (4 sources) Dermatochalasis of right upper eyelid; Translations: [Dermatochalasis of both upper eyelids] Onset: 09-21-2023 04-27-2023 Episodic Other eye disorders (2 sources) Dermatochalasis of left upper eyelid; Translations: [Dermatochalasis of left upper eyelid] Onset: 10-18-2023 Episodic Other screening for suspected conditions (not mental disorders or infectious disease) (2 sources) Encounter for screening for lipoid disorders; Translations: [Encounter for screening mammogram for malignant neoplasm of breast] Onset: 06-01-2023 Episodic Residual codes; unclassified (2 sources) Family history of osteoporosis; Translations: [Family history of osteoporosis] 08-20-2020 Episodic Past or Other Problems Problem Classification Problem Date Documented Da te Episodic/Chronic Unclassified (1 source) Problem Results Test Name Value Interpretation Reference Range Facility Dexa Bone Density Studyon Dexa Bone Density Study [facility] Imaging Services [address] [place] [address] Dexa Bone Density Study MR#: [id number] Acct: [id number] Name: PARVIZ CORREA Rep #: [id number] : 1955 F 68 From: Robert bowman MD PCP: Dr. Sarbjit Frances MD Status: [facility] Study: Dexa Bone Density Study Date of Exam: 12/21/23 Exam# [id number] Ordering Dr: Sarbjit Frances MD [id number] STUDY: DUAL ENERGY X-RAY ABSORPTIOMETRY / DXA REASON FOR EXAM: Female, 68 years old. M85.89 TECHNIQUE: Bone Mineral Density (BMD) measurements of lumbar spine and bilateral hips were obtained. COMPARISON: Comparison is made with prior study dated September 12, 2020. FINDINGS: Lumbar Spine (L1-L4): g/cm2 (1.004) / T-score (-0.4) / Z-score (1.5) Findings are suggestive of normal bone density with a low fracture risk. Left Femur Total: g/cm2 (0.848) / T-score (-0.8) / Z-score (0.6) Left Femoral Neck: g/cm2 (0.780) / T-score (-0.6) / Z-score (1.0) Right Femur Total: g/cm2 (0.837) / T-score (-0.9) / Z-score (0.5) Right Femoral Neck: g/cm2 (0.745) / T-score (-0.9) / Z-score (0.7) The T-Scores on the most recent prior examination were: Lumbar Spine (L1-L4): There has been improvement of bone density since the previous examination. Left Femur Total: which represents a worsening of 3.5%. Right Femur Total: which represents a worsening of 0.9%. BD/Dexa Bone Density Study IMPRESSION: The patient is considered normal as outlined below according to World Payam Organization (WHO) criteria with a low fracture risk. There has been worsening of bone density since the previous examination. Reference Information: The T-score is the number of standard deviations above or below the standard which is normal for young adults at their peak bone mineral density. The World Health Organization (WHO) interprets the T-scores as follows: Above -1 Normal bone density Between -1 and -2.5 Osteopenia Equal to / or below -2.5 Osteoporosis As a practical clinical guideline, osteopenia may be graded as follows: Mild -1 through -1.5 Moderate -1.6 through -2.0 Severe -2.1 through -2.4 The Z-score is the number of standard deviations above or below age-matched controls. A Z-score of less than -1.5 would be considered abnormal. References: 1. NIH Osteoporosis and Related Bone Diseases www osteo.org 2. International Society for Clinical Densitometry www iscd.org 3. National Osteoporosis Foundation www nof.org Electronically Signed: Robert Ferrara MD at 14:32 EDT Reading Location ID and State: [facility] / [place] , Service support , CC: Dr. Sarbjit Frances MD Counseling Services Manager: Signed Normal [facility] Plastic Surgery Visit Report on 10-19-2023 Plastic Surgery Visit Report [facility] Plastic Reconstructive Surgery [address], [address] [place], [place] [address] OFFICE VISIT Date of Service: 10/19/23 MR#: [id number] Acct: [id number] Name: PARVIZ CORREA Rep #: [id number] : 1955 Provider: Dr. Virginie larry MD Age/Sex: 68/F [place] [facility] Status: Signed Intake Vital Signs 06/09/23 11:25 10/12/23 09:00 10/19/23 09:16 Height 53 ft 5 ft 3 in 5 ft 3 in Weight: 136 lb 6 oz BMI 24.1 BP 143/64 H Blood Pressure Location Lt brachial Position Sitting Respiration 16 Pulse 58 L Temp 97.6 F L Temp Source Oral Pulse Oximetry (%) 96 Oxygen Delivery Method room air Intake Visit Reasons: POST #2, KISHORE UPPER BLEPH Chief Complaint: post kishore upper bleph Is patient in pain?: No Allergies No Known Allergies Allergy (Verified 10/19/23 09:20) Medications ???Medication ???Instructions ???Recorded ???Confirmed ???Type zinc acetate 50 mg (zinc) capsule 50 mg PO DAILY 06/09/23 10/19/23 History omega 7-bbq-nmi-fish oil 1,200 mg 1 cap PO DAILY 09/17/23 10/19/23 History (144 mg-216 mg) capsule (Fish Oil) polypodium leucotomos extract 240 2,400 mg PO DAILY 09/17/23 10/19/23 History mg capsule (Heliocare) turmeric 400 mg capsule 400 mg PO DAILY 09/17/23 10/19/23 History erythromycin 5 mg/gram (0.5 %) eye 1 applic ophthalmic (eye) DAILY 09/21/23 10/19/23 Rx ointment #3.5 grams Have you fallen in the past year?: No Nurse's Note: pt here for post op upper bleph, interested in botox. Subjective Details: Parviz comes in for recheck of her upper blepharoplasty. She denies any problems. Objective Details: The upper eyelid incisions are well-approximated. There is some mild swelling that is still present. She is happy with results. There is a small keratosis on the medial aspect of the left eyelid which had been present prior to surgery. Use of an eye cream daily was reviewed with her including application from medial to lateral. Antiaging products and vitamins were also discussed. The patient had other questions regarding aesthetic procedures such as Botox and Restylane. I reviewed these procedures with her including the expected outcome and longevity of the products. She will consider the above and let us know in the event she decides to proceed. 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 Female Reproductive History Menstrual Ab spontaneous: 1 Assessment and Plan (No Qualifiers) Assessment and Plan (1) Status post blepharoplasty: Status: Acute Plan Details Additional Comments: I will see her back as needed and she is encouraged to call with any problems. 10/19/23 9488 Date Virginie Alvarado MD Cosigner Signature: Date (if applicable) CC: Normal [facility] Plastic Surgery Visit Report on 10-12-2023 Plastic Surgery Visit Report [facility] Plastic Reconstructive Surgery [address], [address] [place], [place] [id number] OFFICE VISIT Date of Service: 10/12/23 MR#: [id number] Acct: [id number] Name: PARVIZ CORREA Rep #: [id number] : 1955 Provider: Dr. Virginie larry MD Age/Sex: 68/F [place] [facility] Status: Signed Intake Vital Signs 06/09/23 11:25 10/01/23 06:28 10/12/23 09:00 Height 53 ft 5 ft 3 in 5 ft 3 in Weight: 136 lb BMI 24.0 BP 135/75 H Blood Pressure Location Rt brachial Position Sitting Respiration 16 Pulse 64 Temp 97.6 F L Temp Source Oral Pulse Oximetry (%) 98 Oxygen Delivery Method room air Intake Visit Reasons: POST #1 KISHORE UPPER BLEPH Chief Complaint: post kishore upper bleph Is patient in pain?: No Allergies No Known Allergies Allergy (Verified 10/12/23 09:03) Medications ???Medication ???Instructions ???Recorded ???Confirmed ???Type zinc acetate 50 mg (zinc) capsule 50 mg PO DAILY 06/09/23 10/01/23 History omega 9-nko-wcb-fish oil 1,200 mg 1 cap PO DAILY 09/17/23 09/17/23 History (144 mg-216 mg) capsule (Fish Oil) polypodium leucotomos extract 240 2,400 mg PO DAILY 09/17/23 10/01/23 History mg capsule (Heliocare) turmeric 400 mg capsule 400 mg PO DAILY 09/17/23 10/01/23 History erythromycin 5 mg/gram (0.5 %) eye 1 applic ophthalmic (eye) DAILY 09/21/23 09/21/23 Rx ointment #3.5 grams Have you fallen in the past year?: No Nurse's Note: pt here for post op upper bleph-questions about showering Subjective Details: Parviz comes in for recheck of the bilateral blepharoplasty done approximately 10 days ago. She denies any problems. She states she had minimal pain. Objective Details: The incisions are well-approximated. There is no evidence of infection. The sutures are removed. A few of the aligning fast-absorbing gut were also removed. She is instructed to apply the ointment from medial to lateral daily. She can begin to drive and shower. I will see her back in a week for recheck. 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 Female Reproductive History Menstrual Ab spontaneous: 1 Assessment and Plan (No Qualifiers) Assessment and Plan (1) Status post blepharoplasty: Status: Acute Plan Details Additional Comments: She is to follow-up next week. Precautions regarding activity were reviewed. 10/12/23 1625 Date Virginie Alvarado MD Cosigner Signature: Date (if applicable) [facility] Discharge Instruction [facility] Medical Records Department [address] [place] [address] Instructions for Home/Discharge Instructions 10/01/23 0911 MR#: [id number] Acct: [id number] Name: PARVIZ CORREA Rep #: [id number] : 1955 68 From: Virginie Alvarado MD PCP: Dr. Sarbjit Frances MD [facility] Discharge Instructions Dressing / Incision Additional Dressing/Incision Instructions:: Follow the instructions given in the office Follow Up Care Please Follow Up With: Virginie Alvarado MD When: as scheduled in 1 week Test Results: Test results from this visit will be discussed in further detail at your follow-up appointment, if applicable. Discharge Plan Admission Attending Provider: Virginie Alvarado Primary Care Provider: Sarbjit Frances Instructions Print Language: Korean Discharge Orders/Prescriptions Prescriptions: No Action zinc acetate 50 mg (zinc) capsule 50 mg PO DAILY cephalexin 500 mg capsule 500 mg PO BID Qty: 14 0RF erythromycin 5 mg/gram (0.5 %) ointment 1 applic ophthalmic (eye) DAILY Qty: 3.5 0RF turmeric 400 mg capsule 400 mg PO DAILY omega 9-byi-knv-fish oil [Fish Oil] 1,200 (144-216) mg capsule 1 cap PO DAILY Heliocare 240 mg capsule 2,400 mg PO DAILY Referrals / Follow Up: Sarbjit Frances MD [Primary Care Provider] - Disposition Disposition (needs filled in before D/C Order can be placed): Home, Self Care 10/01/23919 Virginie Alvarado MD CC: Dr. Sarbjit Frances MD Signed Normal [facility] MR/POSTOP.ANEon 10-01-2023 MR/POSTOP.[facility] Medical Records Department [address] [place] [address] Anesthesia Postop Eval I 10/01/23928 MR#: [id number] Acct: [id number] Name: PARVIZ CORREA Rep #: [id number] : 1955 68 From: Lilly Echevarria PCP: Dr. Sarbjit Frances MD Status:[facility] Y Race: C Location: [place] [address]- Anesthesia: Postop Eval I Current Vital Signs Temperature: 97 F Pulse Rate: 91 Blood Pressure: 148/70 Respiratory Rate: 18 Pulse Ox: 98 Assessment Airway patent: Yes Spontaneous unlabored respirations: Yes nausea: No Vomiting: No Anesthesia Complication: No Fluid Hydration Crystalloid volume administer (ml): 1,500 Total IV fluid infused: 1,500 Progress Note Anesthesia document: Postop Eval 1 completed: Yes 10/01/23928 Date Lilly Haileignalex Signature: Date CC: Signed Normal [facility] [id number] 10-01-2023 [facility] Medical Records Department [address] [place] [address] Anesthesia Postop Eval II 10/01/2349 MR#: [id number] Acct: [id number] Name: PARVIZ CORREA ZIYAD Rep #: [id number] : 1955 68 From: Freddie Harvey MD PCP: Dr. Sarbjit Frances MD Status:[facility] Y Race: C Location: [place] [address] Anesthesia Postop Eval I Sum Postop Eval Completion status Anesthesia document: Postop Eval 1 completed: Yes Anesthesia Postop Eval I Summary Anesthesia Postop Eval I Summary: Anesthesia Postop Eval I: Assessment Summary Airway patent Yes 10/01/23 09:29 CHECKER [email or web address].CSIR Spontaneous unlabored Yes 10/01/23 09:29 CHECKER [email or web address].CSIR respirations Mental status nausea No 10/01/23 09:29 CHECKER [email or web address].CSIR Vomiting No 10/01/23 09:29 CHECKER [email or web address].CSIR Anesthesia Postop Eval I: Fluid Summary Crystalloid volume administer 1,500 10/01/23 09:29 CHECKER [email or web address].CSIR (ml) Colloids volume administered ( ml) Blood Product volume administered (ml) Total IV fluid infused 1,500 10/01/23 09:29 CHECKER [email or web address].CSIR Anesthesia Postop Eval I: Summary Notes Anesthesia Complication No 10/01/23 09:29 CHECKER [email or web address].CSIR Anesthesia Complication Comment: Post-operative progress note Anesthesia: Postop Eval II Evaluation Mental status: Awake Pain Level: 1 nausea: No Vomiting: No Complications Anesthesia Complication: No 10/01/23 0949 Date Freddie Harvey MD Cosigner Signature: Date CC: Signed Normal [facility] Operative Reporton 4 Operative Report [facility] Medical Records Department [address] [place] [address] Operative Report 10/01/2314 MR#: [id number] Acct: [id number] Name: PARVIZ CORREA ZIYAD Rep #: [id number] : 1955 68 From: Virginie Alvarado MD PCP: Dr. Sarbjit Frances MD Status:[facility] Location: [place] [address] Problems Associated Problem List Diagnoses (1) Decreased peripheral vision of both eyes: (2) Dermatochalasis of both upper eyelids: Report of Operation Date of Procedure: 10/01/23 Pre-Operative Diagnosis: Bilateral upper eyelid dermatochalasis and obstruction of visual jean Post-Operative Diagnosis: Same Surgery/Procedure Performed:: Bilateral upper blepharoplasty Surgeon: Virginie Alvarado plant maintenance manager: MIRTA MONTANEZgreen tire inspector Type of Anesthesia: General Drains: None Estimated Blood Loss (mL): Minimal Description of Procedure: Patient presents today for upper blepharoplasty. She has documentation of obstruction of visual jean and presents for blepharoplasty to improve this. She is marked in the preop holding area prior to surgery. Informed consent was obtained. The patient is brought to the operating room and placed under general anesthesia in the supine position. The face is prepped and draped in the usual sterile fashion. 1% Xylocaine with epinephri ne is initially used to inject the proposed incision sites. Following this, the outlined skin is removed. Hemostasis is controlled with bipolar cautery. A strip of orbicularis oculi is removed. Again meticulous hemostasis is obtained. The wound is tacked together using fast-absorbing gut. Cool compresses are placed on the eye and we directed our attention to the opposite side where an identical procedure was performed. Following this, a 5-0 Prolene suture was used to approximate skin edges in a subcuticular fashion. The suture ends are affixed to the skin at the orthodox and glabella with Mastisol and Steri-Strips. Cool compresses are placed on the eye during the procedure as well as following it. She tolerated the procedure well was taken to the recovery area in an awakening in stable condition. Needle and sponge counts are correct. Complications None Admit VTE Documentation VTE Mechan Device Prophylaxis: SCD's 10/01/23 09 Cosigner Signature (if applicable): CC: Dr. Sarbjit Frances MD; Dr. Virginie Alvarado MD Signed Normal [facility] CBC W/Diff, Automatedon 08-30 Absolute Lymph 1.86 X10 3/uL Normal 0.83-4.51 [facility] Comment on above: Order Comment: Order Date: 09/10/23 Order Info: 018- - CBCD Performed By: #### L 100.0100 #### [facility] [address] [place], [address] Absolute Neut 4.1 X10 3/uL Normal 2.0-7.7 [facility] Comment on above: Order Comment: Order Date: 09/10/23 Order Info: 018- - CBCD Performed By: #### L 100.0100 #### [facility] [address] [place], [address] Basophils/100 WBC (Bld) 0.5 % Normal 0-1 [facility] Comment on above: Order Comment: Order Date: 09/10/23 Order Info: 018- - CBCD Performed By: #### L 100.0100 #### [facility] [address] [place], [address] Eosinophils/100 WBC (Bld) 2.0 % Normal 0-5 [facility] Comment on above: Order Comment: Order Date: 09/10/23 Order Info: 0184-1 - CBCD Performed By: #### L 100.0100 #### [facility] [address] [place], [address] Erythrocyte distribution width (RBC) [Ratio] 13.4 % Normal 11.6-14.6 [facility] Comment on above: Order Comment: Order Date: 09/10/23 Order Info: 0184- - CBCD Performed By: #### L 100.0100 #### [facility] [address] [place], [address] Hematocrit (Bld) [Volume fraction] 42.0 % Normal 37-47 [facility] Comment on above: Order Comment: Order Date: 09/10/23 Order Info: 0184- - CBCD Performed By: #### L 100.0100 #### [facility] [address] [place], [address] Hemoglobin (Bld) [Mass/Vol] 13.2 g/dL Normal 12.0-15.0 [facility] Comment on above: Order Comment: Order Date: 09/10/23 Order Info: 0184- - CBCD Performed By: #### L 100.0100 #### [facility] [address] [place], [address] IG% 0.300 Normal 0.0-0.9 [facility] Comment on above: Order Comment: Order Date: 09/10/23 Order Info: 0184- - CBCD Result Comment: IG% - Immature Granulocytes (promyelocytes, myelocytes and metamyelocytes) > 1% indicates that a LEFT SHIFT is Present. Performed By: #### L 100.0100 #### [facility] [address] [place], [address] Lymphocytes/100 WBC (Bld) 28.2 % Normal 19-41 [facility] Comment on above: Order Comment: Order Date: 09/10/23 Order Info: 0184-1 - CBCD Performed By: #### L 100.0100 #### [facility] [address] [place], [address] MCH (RBC) [Entitic mass] 27.4 pg Normal 27.0-32.0 [facility] Comment on above: Order Comment: Order Date: 09/10/23 Order Info: 4-1 - CBCD Performed By: #### L 100.0100 #### [facility] [address] [place], [address] MCHC (RBC) [Mass/Vol] 31.4 g/dL Low 32-36 [facility] Comment on above: Order Comment: Order Date: 09/10/23 Order Info: 183- - CBCD Performed By: #### L 100.0100 #### [facility] [address] [place], [address] MCV (RBC) [Entitic vol] 87.1 fL Normal 81-99 [facility] Comment on above: Order Comment: Order Date: 09/10/23 Order Info: 018-1 - CBCD Performed By: #### L 100.0100 #### [facility] [address] [place], [address] Monocytes/100 WBC (Bld) 7.0 % Normal 0-10 [facility] Comment on above: Order Comment: Order Date: 09/10/23 Order Info: 0184-1 - CBCD Performed By: #### L 100.0100 #### [facility] [address] [place], [address] Neutrophils/100 WBC (Bld) 62.0 % Normal 47-70 [facility] Comment on above: Order Comment: Order Date: 09/10/23 Order Info: 0184-1 - CBCD Performed By: #### L 100.0100 #### [facility] [address] [place], [address] Nucleated RBC (Bld) [#/Vol] 0 10*3/uL Normal 0-5 [facility] Comment on above: Order Comment: Order Date: 09/10/23 Order Info: 0184-1 - CBCD Performed By: #### L 100.0100 #### [facility] [address] [place], [address] Platelet mean volume (Bld) [Entitic vol] 10.2 fL Normal 6.2-12.0 [facility] Comment on above: Order Comment: Order Date: 09/10/23 Order Info: 0184-1 - CBCD Performed By: #### L 100.0100 #### [facility] [address] [place], [address] Platelets (Bld) [#/Vol] 301 10*3/uL Normal 150-450 [facility] Comment on above: Order Comment: Order Date: 09/10/23 Order Info: 018-1 - CBCD Performed By: #### L 100.0100 #### [facility] [address] [place], [address] RBC (Bld) [#/Vol] 4.82 10*6/uL Normal 4.2-5.4 [facility] Comment on above: Order Comment: Order Date: 09/10/23 Order Info: 0184-1 - CBCD Performed By: #### L 100.0100 #### [facility] [address] [place], [address] RDW SD 42.9 fl Normal 35.1-43.9 [facility] Comment on above: Order Comment: Order Date: 09/10/23 Order Info: 0184-1 - CBCD Performed By: #### L 100.0100 #### [facility] [address] [place], [address] WBC (Bld) [#/Vol] 6.6 10*3/uL Normal 4.4-11.0 [facility] Comment on above: Order Comment: Order Date: 09/10/23 Order Info: 0184-1 - CBCD Performed By: #### L 100.0100 #### [facility] [address] [place], [address] Comprehensive Metabolic Prof ilon 09-22-2023 Albumin [Mass/Vol] 3.8 g/dL Normal 3.2-5.0 [facility] Comment on above: Order Comment: Order Date: 07/23/23 Order Info: 0786-1 - CMP Order Info: [id number] - LIPID Performed By: #### L 500.4100, L500.4050 #### [facility] [address] [place], [address] Albumin/Globulin [Mass ratio] 1.1 {ratio} Normal 0.9-2.4 [facility] Comment on above: Order Comment: Order Date: 07/23/23 Order Info: 0786-1 - CMP Order Info: [id number] - LIPID Performed By: #### L 500.4100, L500.4050 #### [facility] [address] [place], [address] ALK P 91 U/L Normal 45-117 [facility] Comment on above: Order Comment: Order Date: 07/23/23 Order Info: 0786-1 - CMP Order Info: [id number] - LIPID Performed By: #### L 500.4100, L500.4050 #### [facility] [address] [place], [address] ALT [Catalytic activity/Vol] 24 U/L Normal 13-56 [facility] Comment on above: Order Comment: Order Date: 07/23/23 Order Info: 0786-1 - CMP Order Info: [id number] - LIPID Performed By: #### L 500.4100, L500.4050 #### [facility] [address] [place], [address] AST [Catalytic activity/Vol] 21 U/L Normal 15-37 [facility] Comment on above: Order Comment: Order Date: 07/23/23 Order Info: 0786-1 - CMP Order Info: [id number] - LIPID Performed By: #### L 500.4100, L500.4050 #### [facility] [address] [place], [address] Bilirubin [Mass/Vol] 0.30 mg/dL Normal 0.20-1.00 [facility] Comment on above: Order Comment: Order Date: 07/23/23 Order Info: 0786-1 - CMP Order Info: [id number] - LIPID Result Comment: For patients on eltrombopag therapy, use of Dimension [place] TBIL is not recommended. Performed By: #### L 500.4100, L500.4050 #### [facility] [address] [place], [address] BUN/CRE 22.0 RATIO High 10-20 [facility] Comment on above: Order Comment: Order Date: 07/23/23 Order Info: 0786-1 - CMP Order Info: [id number] - LIPID Performed By: #### L 500.4100, L500.4050 #### [facility] [address] [place], [address] CA,Total 9.2 mg/dL Normal 8.5-10.1 [facility] Comment on above: Order Comment: Order Date: 07/23/23 Order Info: 0786-1 - CMP Order Info: [id number] - LIPID Performed By: #### L 500.4100, L500.4050 #### [facility] [address] [place], [address] Chloride [Moles/Vol] 107 mmol/L Normal 98-107 [facility] Comment on above: Order Comment: Order Date: 07/23/23 Order Info: 0786-1 - CMP Order Info: [id number] - LIPID Performed By: #### L 500.4100, L500.4050 #### [facility] [address] [place], [address] CO2 [Moles/Vol] 27.0 mmol/L Normal 21.0-32.0 [facility] Comment on above: Order Comment: Order Date: 07/23/23 Order Info: [id number] - CMP Order Info: [id number] - LIPID Performed By: #### L 500.4100, L500.4050 #### [facility] [address] [place], [address] Creatinine [Mass/Vol] 0.73 mg/dL Normal 0.55-1.02 [facility] Comment on above: Order Comment: Order Date: 07/23/23 Order Info: [id number] - CMP Order Info: [id number] - LIPID Result Comment: The validity of the calculated GFR GFRAA in patients over 70 years has not been determined. Clinical correlation is essential. Performed By: #### L 500.4100, L500.4050 #### [facility] [address] [place], [address] EST GFR - AA 103 mL/min Normal >60 [facility] Comment on above: Order Comment: Order Date: 07/23/23 Order Info: 07 - CMP Order Info: [id number] - LIPID Result Comment: Afri can Malagasy GFR Calc Performed By: #### L 500.4100, L500.4050 #### [facility] [address] [place], [address] GAP 6 Normal 5-15 [facility] Comment on above: Order Comment: Order Date: 07/23/23 Order Info: 0786 - CMP Order Info: [id number] - LIPID Performed By: #### L 500.4100, L500.4050 #### [facility] [address] [place], [address] GFR/1.73 sq M.predicted among non-blacks MDRD (S/P/Bld) [Vol rate/Area] 85 mL/min/{1.73_m2} Normal >60 [facility] Comment on above: Order Comment: Order Date: 07/23/23 Order Info: 0786-1 - CMP Order Info: [id number] - LIPID Result Comment: Non- GFR Calc Performed By: #### L 500.4100, L500.4050 #### [facility] [address] [place], [address] Globulin (S) [Mass/Vol] 3.5 g/dL Normal 2.2-4.2 [facility] Comment on above: Order Comment: Order Date: 07/23/23 Order Info: 0786-1 - CMP Order Info: [id number] - LIPID Performed By: #### L 500.4100, L500.4050 #### [facility] [address] [place], [address] Glucose [Mass/Vol] 101 mg/dL Normal 74-106 [facility] Comment on above: Order Comment: Order Date: 07/23/23 Order Info: 0786-1 - CMP Order Info: [id number] - LIPID Result Comment: Fast ing Glucose result from 100 to 125 mg/dL suggests IMPAIRED HOMEOSTASIS per A.D.A. criteria. Performed By: #### L 500.4100, L500.4050 #### [facility] [address] [place], [address] Potassium [Moles/Vol] 3.9 mmol/L Normal 3.5-5.1 [facility] Comment on above: Order Comment: Order Date: 07/23/23 Order Info: 0786-1 - CMP Order Info: [id number] - LIPID Performed By: #### L 500.4100, L500.4050 #### [facility] [address] [place], [address] Sodium [Moles/Vol] 140 mmol/L Normal 136-145 [facility] Comment on above: Order Comment: Order Date: 07/23/23 Order Info: 0786-1 - CMP Order Info: [id number] - LIPID Performed By: #### L 500.4100, L500.4050 #### [facility] [address] [place], [address] T PROT 7.3 g/dL Normal 6.4-8.2 [facility] Comment on above: Order Comment: Order Date: 07/23/23 Order Info: 0786 - CMP Order Info: [id number] - LIPID Performed By: #### L 500.4100, L500.4050 #### [facility] [address] [place], [place], [address] Urea nitrogen [Mass/Vol] 16 mg/dL Normal 7-18 [facility] Comment on above: Order Comment: Order Date: 07/23/23 Order Info: 07 - CMP Order Info: [id number] - LIPID Performed By: #### L 500.4100, L500.4050 #### [facility] [address] [place], [address] Lipid Profileon 09-22-2023 Cholesterol [Mass/Vol] 206 mg/dL High 200 [facility] Comment on above: Order Comment: Order Date: 07/23/23 Order Info: 0786 - CMP Order Info: [id number] - LIPID Result Comment: <200 mg/dL Desirable 200-240 mg/dL Borderline >240 mg/dL High Risk Performed By: #### L 500.4100, L500.4050 #### [facility] [address] [place], [address] Cholesterol in HDL [Mass/Vol] 84 mg/dL Normal [facility] Comment on above: Order Comment: Order Date: 07/23/23 Order Info: 0786- - CMP Order Info: [id number] - LIPID Result Comment: The drugs N-Acetylcysteine and Metamizole may falsely depress this assay. Reference Range HDL <40 mg/dL Low HDL Cholesterol HDL >or= 60 mg/dL High HDL Cholesterol Performed By: #### L 500.4100, L500.4050 #### [facility] [address] [place], [address] Cholesterol in LDL [Mass/Vol] 109 mg/dL Normal 0-130 [facility] Comment on above: Order Comment: Order Date: 07/23/23 Order Info: 0786-1 - CMP Order Info: [id number] - LIPID Performed By: #### L 500.4100, L500.4050 #### [facility] [address] [place], [address] Cholesterol in VLDL [Mass/Vol] 13 mg/dL Normal 5-40 [facility] Comment on above: Order Comment: Order Date: 07/23/23 Order Info: 0786-1 - CMP Order Info: [id number] - LIPID Performed By: #### L 500.4100, L500.4050 #### [facility] [address] [place], [address] Triglyceride [Mass/Vol] 64 mg/dL Normal [facility] Comment on above: Order Comment: Order Date: 07/23/23 Order Info: 0786-1 - CMP Order Info: [id number] - LIPID Result Comment: The drugs N-Acetylcysteine and Metamizole may falsely depress this assay. Serum Triglycerides Reference Interval Normal <150 mg/dL Borderline high 150 - 199 mg/dL High 200 - 499 mg/dL Very High > or = 500 mg/dL Performed By: #### L 500.4100, L500.4050 #### [facility] [address] [place], [address] Plastic Surgery Visit Report on 09-21-2023 Plastic Surgery Visit Report [facility] [address], [address] [place] [address] OFFICE VISIT Date of Service: 09/21/23 MR#: [id number] Acct: [id number] Name: PARVIZ CORREA Rep #: [id number] : 1955 Provider: Dr. Virginie larry MD Age/Sex: 68/F Location: [facility] Status: Signed Intake Vital Signs 06/09/23 11:25 08/31/23 09:42 09/21/23 09:02 Height 53 ft 5 ft 3 in 5 ft 3 in Weight: 139 lb 2 oz 136 lb 8 oz BMI 24.6 24.1 BP 130/76 H 148/75 H Blood Pressure Location Lt brachial Lt brachial Position Sitting Sitting Respiration 16 16 Pulse 57 L 58 L Temp 97.8 F 982.0 F H Temp Source Oral Oral Pulse Oximetry (%) 97 Oxygen Delivery Method room air room air Intake Visit Reasons: PRE #2 KISHORE UPPER BLEPH Chief Complaint: pre #2 kishore upper bleph Is patient in pain?: No Allergies No Known Allergies Allergy (Verified 09/21/23 09:06) Have you fallen in the past year?: No Nurse's Note: pre op #2 upper kishore bleph-questions on sleeping in recliner [facility], [facility] Medical History (Updated 09/17/23 @ 09:26 by Sasha Peter) Wears glasses Wears contact lenses Post-menopausal Cancer Anxiety Alcohol use Arthritis Non-smoker History of echocardiogram Osteoarthritis Skin cancer Mitral valve problem Surgical History (Updated 09/17/23 @ 09:26 by Sasha Peter) Status post Mohs surgery H/O vein stripping H/O foot surgery H/O hand surgery Family History Mother Arthritis Hypertension Osteoporosis Grandmother Breast cancer Social History number of children: 3 current occupational status: employed 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 Female Reproductive History Menstrual Ab spontaneous: 1 HPI PRE #2 KISHORE UPPER BLEPH Details: Parviz comes in for preop preparation regarding the upper blepharoplasty to be done in a few weeks. She has received her medical clearance from her PCP. Her previous lab work is satisfactory however she will repeat her lab work since this is pending by her PCP anyway. She denies use of nicotine or marijuana products. Exam Details Patient with significant upper eyelid dermatochalasis and obstruction of visual field. She also was noted to have aging and solar damaged skin. We briefly discussed skin care management and reversal of signs of aging. The procedure of upper blepharoplasty was thoroughly reviewed with her including the expected pre-, intra-, postoperative course. The incisions and scars as well as limitations after surgery were reviewed. The pre and postop instructions were reviewed in detail. I reviewed the medications that were prescribed for her which are Keflex, Percocet, and erythromycin ophthalmic ointment. The potential risk and complications of surgery were reviewed which include but are not exclusive of bleeding, infection, pain, numbness, asymmetry, scar tissue, skin necrosis, the need for further surgery, DVT, and even . She is instructed to call with any further questions prior to surgery. Coding Level of Care Code Off vis,est,level 4 Diagnoses Dermatochalasis of both upper eyelids H02.831; H02.834 Decreased peripheral vision of both eyes H53.453 Assessment and Plan (No Qualifiers) Assessment and Plan (1) Dermatochalasis of both upper eyelids: Status: Acute (2) Decreased peripheral vision of both eyes: Status: Acute Plan Details Additional Comments: We will proceed with upper blepharoplasty in the near future. She is encouraged to call with any questions. Clinical Quality Measures Falls Risk Screening/Assistive Devices Have you fallen in the past year?: No 09/21/23 1518 Date Virginie Alvarado MD Cosigner Signature: Date (if applicable) CC: Normal [facility] Plastic Surgery Visit Report on 08-31-2023 Plastic Surgery Visit Report [facility]astic [facility] Surgery [address] [place] [address] OFFICE VISIT Date of Service: 08/31/23 MR#: [id number] Acct: [id number] Name: PARVIZ CORREA Rep #: [id number] : 1955 Provider: Dr. Virginie larry MD Age/Sex: 68/F [place] [facility] [place] Status: Signed Intake Vital Signs 06/09/23 11:25 08/31/23 09:42 Height 53 ft 5 ft 3 in Weight: 139 lb 2 oz BMI 24.6 BP 130/76 H Blood Pressure Location Lt brachial Position Sitting Respiration 16 Pulse 57 L Temp 97.8 F Temp Source Oral Pulse Oximetry (%) 97 Oxygen Delivery Method room air Intake Visit Reasons: PRE #1 KISHORE UPPER BLEPH Chief Complaint: pre #1 kishore upper bleph Is patient in pain?: No Allergies No Known Allergies Allergy (Verified 08/31/23 09:43) Medications ???Medication ???Instructions ???Recorded ???Confirmed ???Type terbinafine HCl 250 mg tablet 250 mg PO DAILY 04/27/23 08/31/23 History calcium carbonate 600 mg PO DAILY 06/09/23 08/31/23 History cholecalciferol (vitamin D3) 50 50 mcg PO DAILY 06/09/23 08/31/23 History mcg (2,000 unit) capsule zinc acetate 50 mg (zinc) capsule 50 mg PO DAILY 06/09/23 08/31/23 History Have you fallen in the past year?: No Nurse's Note: pt here for pre op #1 kishore upper bleph PFSH Medical History (Updated 06/09/23 @ 12:07 by Lacey Torre LAWN SERVICE SUPERVISOR, LAWN SERVICE SUPERVISOR-C) Osteoarthritis Skin cancer Mitral valve problem Surgical History (Updated 06/09/23 @ 11:29 by Shannan Bay) Status post Mohs surgery H/O vein stripping H/O foot surgery H/O hand surgery Family History Mother Arthritis Hypertension Osteoporosis Grandmother Breast cancer Social History number of children: 3 current occupational status: employed current occupation: Home [employer] Smoking Status: Never smoker alcohol intake: current alcohol intake frequency: a few times a week Alcohol type: wine details: a glass of wine 3 times a week substance use type: does not use diet: other seatbelt use: always do you feel safe at home: Yes additional social history: Spouse Ian gregory denies marijuana use, denies edibles, denies vaping, denies aspirin use uses ibuprofen as needed. Female Reproductive History Menstrual Ab spontaneous: 1 HPI PRE #1 KISHORE UPPER BLEPH Details: Parviz comes in for preop preparation regarding the upcoming upper blepharoplasty. Her procedure has been approved by her insurance. Exam Details The patient has significant upper eyelid dermatochalasis obstructing the vision on upper lateral gaze. The procedure of upper blepharoplasty was reviewed with her including the expected pre-, intra, and postoperative course. The incisions and scars as well as limitations after surgery were reviewed. The sutures and dressings were also reviewed. She is aware that she will need to get a preop clearance from her PCP within 30 days of the surgery. I reviewed what resources she will need at home following surgery including cool compresses and maintaining a recliner position. I have given her a packet of information including the pre and postop instructions as well as an informed consent to review prior to the next appointment. Additionally, list of medications to avoid prior to surgery was provided. Coding Level of Care Code Off vis,est,level 3 Diagnoses Decreased peripheral vision of both eyes H53.453 Dermatochalasis of both upper eyelids H02.831; H02.834 Assessment and Plan (No Qualifiers) Assessment and Plan (1) Decreased peripheral vision of both eyes: Status: Acute (2) Dermatochalasis of both upper eyelids: Status: Acute Plan Details Additional Comments: She will schedule an appointment with her PCP. She will review the material provided prior to the next appointment. Clinical Quality Measures Falls Risk Screening/Assistive Devices Have you fallen in the past year?: No 08/31/23 1549 Date Virginie Watt Signature: Date (if applicable) CC: Normal [facility] Counseling Services Manager Office Visit Reporton 06-09-2023 Counseling Services Manager Office Visit Report [facility] [address] [place] [address] OFFICE VISIT Date of Service: 06/09/23 MR#: [id number] Acct: [id number] Name: PARVIZ CORREA Rep #: [id number] : 1955 Provider: MECCA monique Age/Sex: 67/F [place] [facility] [place]: Signed Intake Vital Signs 04/27/23 14:03 06/09/23 11:17 06/09/23 11:25 Height 53 ft 5 ft 3 in 53 ft Weight: 139 lb 2 oz 138 lb 8 oz BMI 0.2 24.5 BP 157/81 H 134/80 H Blood Pressure Location Lt brachial Position Sitting Respiration 16 Pulse 61 Pulse Source Monitor Temp 97.6 F L Pulse Oximetry (%) 98 Oxygen Delivery Method room air Intake Visit Reasons: Annual (SERVICE DESK AGENT) Chief Complaint: Annual Customer Support Technician Required: No Is patient in pain?: No Allergies No Known Allergies Allergy (Verified 06/09/23 11:16) Medications terbinafine HCl 250 mg tablet 250 mg PO DAILY 04/27/23 [History Confirmed 06/09/23] calcium carbonate 600 mg PO DAILY 06/09/23 [History Confirmed 06/09/23] cholecalciferol (vitamin D3) 50 mcg (2,000 unit) capsule 50 mcg PO DAILY 06/09/23 [History Confirmed 06/09/23] zinc acetate 50 mg (zinc) capsule 50 mg PO DAILY 06/09/23 [History Confirmed 06/09/23] Is last menstrual period known: No Post menopausal: Yes Patient : No : No PFSH Medical History (Updated 06/09/23 @ 12:07 by Lacey Torre NP, MECCA) Mitral valve problem Osteoarthritis Skin cancer Surgical History (Updated 06/09/23 @ 11:29 by Shannan Bay) H/O foot surgery H/O hand surgery H/O vein stripping Status post Mohs surgery Family History Mother Arthritis Hypertension Osteoporosis Grandmother Breast cancer Social History number of children: 3 current occupational status: employed 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 History 4 Elective abortions Hx Para 3 Spontaneous abortions 1 Hx # Term Pregnancies 3 Ectopic pregnancies Hx # Pregnancies Multiple births # of living children 3 Past Pregnancies Del. Date Name GA/Weeks Outcome Route Bth Weight Infant Gen Labor Lgth Anesthesia Del Locatn Provider FOB Unknown Collin 1983 Unknown Kathy 1984 Unknown Yelena 1987 HPI Encounter for routine gynecological examination Details: PARVIZ CORREA is a 67 year old who presents for annual exam. Denies concerns Last PAP: 2019 History of abnormal PAP: no Last mammogram: 04/2023 History of abnormal mammogram: no Colon cancer screening: <10 yr Roberto Other preventative health care screenings: Bridgett Frances Female Reproductive History Questions: metorrhagia: No, sexually active: Yes, dyspareunia: No and PCB: No Menopausal Treatment: No HRT, No Vaginal Estrogen, No Osphena, No OTC treatments and No prescription non-hormonal treatment ROS Const Constitutional: Denies fatigue, weight gain or weight loss Cardio Card: Denies chest pain Resp Resp: Denies cough or dyspnea on exertion GI GI: Denies abdominal pain, bloating, change in stool character, constipation or vomiting : Reports as per HPI; Denies difficulty voiding, pelvic pain, urinary frequency, urinary incontinence, urinary urgency, vaginal discharge or vaginal pruritus Exam Const General: cooperative, healthy appearing, no acute distress and well developed Orientation: alert, oriented to person and oriented to place HENUT Head: normal to inspection Neck Neck: normal visual inspection Thyroid: thyroid normal Lymphatic: no lymphadenopathy noted Chest Breast inspection: normal inspection of the breasts and normal inspection of the axillae Breast palpation: normal palpation of the breasts, normal palpation of the axillae and no axillary lymphadenopathy Resp Effort Inspection: normal respiratory effort GI Palpation: soft, no masses and nontender Rectal Exam: deferred External Female Exam: normal external appearance and normal appearance of the urethra Urethra: normal appearance of the urethra and normal palpation Speculum Exam - Vagina: normal vaginal discharge and vagina atrophic (mild, asymptomatic) Speculum Exam - Cervix: normal appearance of the cervix Bimanual Exam- Vagina Uterus: normal bimanual exam, uterine size normal, uterine shape normal and (more content not included)... Normal [facility] SCRN MAMM (CAD)W/BRAD BILATo n 05-26-2023 SCRN MAMM (CAD)W/BRAD BILAT [facility] Imaging Services [address] [place] [address] SCRN MAMM (CAD)W/BRAD BILAT MR#: [id number] Acct: [id number] Name: PARVIZ CORREA Rep #: [id number] : 1955 F 67 From: Robert bowman MD PCP: Dr. Sarbjit Frances MD Status: [facility] Study: SCRN MAMM (CAD)W/BRAD BILAT Date of Exam: 04/30 09/21 Exam# [id number] Ordering Dr: Lacey Torre LAWN SERVICE SUPERVISOR LAWN SERVICE SUPERVISOR -C [id number] MAMMOGRAPHY - BILATERAL SCREENING REASON FOR EXAM: Female, 67 years old. Routine annual screening examination. PERTINENT HISTORY: Grandmother with breast cancer. Remote left excisional breast biopsy. TECHNIQUE: Digital bilateral breast brad (3D mammographic acquisition) in the CC and MLO projections. 2-D mediolateral oblique (MLO) and craniocaudad (CC) views of both breasts were obtained. CAD: Full Field Digital Mammography with Computer Added Detection was performed. COMPARISON: Comparison is made with prior study dated April 07, 2022 and September 12, 2020. FINDINGS: Breast Composition: The breasts are heterogeneously dense, which may obscure small masses. There are no dominant masses or suspicious calcifications. Stable small benign-appearing bilateral axillary lymph nodes. No other significant abnormalities are identified. There has been no significant change since the prior study. BI/SCRN MAMM (CAD)W/BRAD BILAT IMPRESSION: Stable bilateral screening mammogram. Yearly follow-up mammogram recommended. (A) ASSESSMENT CATEGORY: BIRADS Category 2: Benign. A letter regarding these results will be sent to the patient by the facility within 30 days. Approximately 10% of breast cancers are not detected by mammography. A normal mammogram should not delay biopsy of a clinically suspicious abnormality. [id number] Electronically Signed: Robert Ferrara MD at 9:35 EDT , CC: MECCA Torre; Dr. Sarbjit Frances MD Counseling Services Manager: Signed Normal [facility] Plastic Surgery Visit Report on 04-27-2023 Plastic Surgery Visit Report [facility] Plastic Reconstructive Surgery [address], [address] [place], [place] [address] OFFICE VISIT Date of Service: 04/27/23 MR#: [id number] Acct: [id number] Name: PARVIZ CORREA ZIYAD Rep #: [id number] : 1955 Provider: Dr. Virginie larry MD Age/Sex: 67/F Location[facility] Status: Signed Intake Vital Signs 03/17/22 10:19 04/27/23 14:03 Height 5 ft 3 in 53 ft Weight: 139 lb 2 oz BMI 0.2 BP 157/81 H Blood Pressure Location Lt brachial Position Sitting Respiration 16 Pulse 61 Pulse Source Monitor Temp 97.6 F L Temp Source Oral Pulse Oximetry (%) 98 Oxygen Delivery Method room air Intake Visit Reasons: UPPER BLEPHAROPLASTY Chief Complaint: upper blepharoplasty consult Is patient in pain?: No Allergies No Known Allergies Allergy (Verified 04/27/23 14:04) Medications terbinafine HCl 250 mg tablet 250 mg PO DAILY 04/27/23 [History Confirmed 04/27/23] Nurse's Note: pt here for upper blepharoplasty consult [facility] Medical History (Updated 04/27/23 @ 14:[address] 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 Female Reproductive History Menstrual Ab spontaneous: 1 HPI UPPER BLEPHAROPLASTY Details: Parviz is a 67-year-old female who presents today for consideration of upper blepharoplasty. She states that she has noticed her vision to be increasingly compromised by her loose skin of her eyelids. She states she is in good health. She denies use of nicotine or marijuana products. ROS General General: Yes good health; No fatigue, fever(s) or weight loss HENMT HENMT: No rhinitis, sore throat/mouth sore, nasal congestion, contacts or glaucoma Endo Endocrine: No thyroid disease, polydipsia, heat intolerance, cold intolerance, hepatitis or excessive urine Skin Skin: Yes Bleeding and bruising; No changing moles or suspicious lesion Musc Musculoskeletal: No joint pain, joint stiffness, muscle weakness, back pain, osteoarthritis or Muscle aches/ myalgia Neuro Neurological: No headache(s), No lightheadedness and No numbness Cardio Cardiovascular: No chest pain, pacemaker, fatigue or shortness of breat with exertion Psych Psychiatric: No depression, claustrophobia or anxiety Resp Respiratory: No spitting up, shortness of breath, sleep apnea, asthma, emphysema, TB, Cough or Smoker Gastro Gastrointestinal: No diarrhea, constipation, blood in stool, nausea, vomiting or abdominal bloating Ramirez Hematologic: No anemia, No bleeding and No abnormal bleeding Genitourinary: No urinary frequency, blood in urine or incontinence Exam Details The patient has significant bilateral upper eyelid dermatochalasis with her eyelid skin overlapping her upper eyelashes. She maintains tone in her eyebrows in order to facilitate vision. The ov erlying skin is intact. I reviewed upper blepharoplasty including the incisions and scars as well as limitations after surgery. The expected pre-, intra-, postoperative course were reviewed. I indicated that she would need to get visual jean to document the amount of compromise that she has from the dermatochalasis. Once we have received the results of this test, we will submit to the insurance to obtain preauthorization for the proposed surgery of bilateral upper blepharoplasty. She is aware that the surgery is done as an outpatient under general anesthetic. We will see her back for further preoperative planning once we have obtained preauthorization. Coding Level of Care Code Off vis,new,level 3 Diagnoses Dermatochalasis of both upper eyelids H02.831; H02.834 Decreased peripheral vision of both eyes H53.453 Assessment and Plan (No Qualifiers) Assessment and Plan (1) Dermatochalasis of both upper eyelids: Status: Acute (2) Decreased peripheral vision of both eyes: Status: Acute Plan Details Additional Comments: We will await the results of the visu (more content not included)... Normal [facility] 01-30-2019 [facility] HNO ID: [id number] Author: Mammography Coordinator Service: ? Author Type: Physician Type: Letter Filed: 01/31/2019 11:35 PM Note Text: January 30, 2019 PID: [id number] Parviz Correa [address] [place] [address] Dear Ms. Correa, We are pleased to inform you that the results of your recent breast imaging exam on 01/30/2019 are normal. Early detection of cancer is very important. We also understand recommendations regarding breast cancer screening are controversial. Please discuss with your primary care provider which strategy is best for you and whether a mammogram is right for you. Your imaging studies and report will be kept on file at [facility] as part of your permanent medical record and are available for your continuing care. Thank you for allowing us to help in meeting your health care needs. Sincerely, Dr. Lund Interpreting Radiologist [facility] (Normal over 40) Normal [facility] SCREENINGon 01-30-2019 [facility] SCREENING * * *Final Report* * * DATE OF EXAM: Jan 30 2019 3:26PM WRW [id number] - [facility] SCREENING / PROCEDURE REASON: Screening * * * * Physician Interpretation * * * * RESULT: #[id number] - [facility] SCREENING BILATERAL DIGITAL SCREENING MAMMOGRAM WITH CAD: 01/30/2019 HISTORY: Screening /Screening Mammogram-Patient reports NO symptoms /priors available for comparison. RESULT: TECHNIQUE: The study was acquired using full field digital technology and interpreted from soft copy. Current study was also evaluated with a Computer Aided Detection (CAD). Comparison is made to exams dated: 11/29/2017 mammogram, 09/18/2016 mammogram, and 05/22/2015 mammogram - [facility]. There are scattered fibroglandular elements in both breasts. No significant masses, calcifications, or other findings are seen in either breast. There has been no significant interval change. IMPRESSION: NEGATIVE There is no mammographic evidence of malignancy. A 1 year screening mammogram is recommended. Malika powers/austen:01/30/2019 16:33:22 copy to: ARIE HERNÁNDEZ, ph: [phone] Camera Maker(s): RT Tomasz(R)(M), [facility] letter sent: Normal over 40 Mammogram BI-RADS: 1 Negative Multiple national specialty organizations have released breast cancer screening guidelines for women at average risk for developing breast cancer - guidelines that are based on both evidence and opinion, yet differ on when to start and how often to screen for breast cancer. With representation from Breast Imaging, Internal Medicine, Women's Health, Family Medicine, and Medical/Surgical Oncology, the [facility] has carefully reviewed the data and reached the following consensus: 1) All women should engage in shared decision-making with their providers to decide when to start and how often to screen; 2) All women should have the opportunity to start screening mammography at age 40; 3) For women ages 45-55, we recommend annual screening mammograms; 4) For women ages 55 and over, we support both the transition from an annual to a biennial interval if this aligns more with patient's values and preferences, or continuation with annual screening; 5) All women should discuss with their providers when to stop screening mammograms. Counseling Services Manager: Austen Transcribe Date/Time: Jan 30 2019 3:28P Dictated by: MALIKA LUND MD This examination was interpreted and the report reviewed and electronically signed by: MALIKA LUND MD on Jan 30 2019 4:33PM EST [id number] CN Normal [facility] PROGRESSon 01-30-2019 PROGRESS HNO ID: [id number] Author: Leila Galloway (Tech) Service: ? Author Type: Snapper On Type: Progress Notes Filed: 01/30/2019 3:05 PM Note Text: Radiology Service Progress Note PATIENT NAME: Parviz Correa DATE OF SERVICE: January 30, 2019 TIME: 2:58 PM PATIENT IDENTITY VERIFICATION COMPLETED USING TWO (2) IDENTIFIERS: Name and Date of confirmed by patient verbally. PATIENT GENDER DATA: Female. status: : No status: NO. PATIENT RELEVANT IMPLANT DATA REVIEWED: Not Applicable RADIOLOGY DEPARTMENT: Mammography PERIPHERAL IV DATA: Not applicable SIGNED BY: Leila Galloway January 30, 2019 2:58 PM Normal [facility] Clinical Summary: HMSPatient IDon 02-10-[address] [facility] Work Phone: Office Visit: New - visi t with practice, Rm: 3on 02-10-2018 NEGATED: Highlighted rowProtein mass conc Done Invalid Interpretation Code [facility] Work Phone: NEGATED: Highlighted rowxray history of the bilateral hands on 02/01/2018 at [facility] Invalid Interpretation Code [facility] Work Phone: Clinical Lists Update: Prelo ad Extendedon 02-08-2018 Tobacco smoking status NHIS Tobacco smoking status NHIS Invalid Interpretation Code [facility] Work Phone: Clinical Summary: Data Submi tted by Patient in [place] 02-08-2018 #DEP CHLDRN No Invalid Interpretation Code [facility] Work Phone: 3+ETOHDAILY less than 1 drink per day Invalid Interpretation Code [facility] Work Phone: ASTHEHSZHOUS 3 floors Invalid Interpretation Code [facility] Work Phone: BROTHERS PMH Cancer Invalid Interpretation Code [facility] Work Phone: BRTH PMH COM Pancreatic cancer Invalid Interpretation Code [facility] Work Phone: DAD HX COMM My father was a smoker Invalid Interpretation Code [facility] Work Phone: DEATHCAU DAD COPD Invalid Interpretation Code [facility] Work Phone: DEP ALG LIST I don't have any drug allergies.,I don't have any food allergies.,I don't have any environmental allergies. Invalid Interpretation Code [facility] Work Phone: DEP DAD PMH COPD Invalid Interpretation Code [facility] Work Phone: DEP DRUG USE No Invalid Interpretation Code [facility] Work Phone: DEP EMPLOYER employed Invalid Interpretation Code [facility] Work Phone: DEP ETOH USE Yes Invalid Interpretation Code [facility] Work Phone: DEP EXERCISE Yes Invalid Interpretation Code [facility] Work Phone: DEP EXERTYP walking, strength training, yoga, cycling Invalid Interpretation Code [facility] Work Phone: DEP MED LIST Polypodium Leucotomos 240 mg Cap, 1 times per day Invalid Interpretation Code [facility] Work Phone: DEP MOM PMH Osteoporosis Invalid Interpretation Code [facility] Work Phone: DEP SH CSMO never smoker Invalid Interpretation Code [facility] Work Phone: DEP SH MAST Invalid Interpretation Code 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 Work Phone: DEP SURGERY Foot surgery Invalid Interpretation Code [facility] Work Phone: DEPEXER FREQ 5 days per week Invalid Interpretation Code [facility] Work Phone: ETOHPERFRM wine Invalid Interpretation Code [facility] Work Phone: FATHER A/D Invalid Interpretation Code [facility] Work Phone: MEDICCOMMNTS Also taking: Vitamin D3 400 IU, Resveratrol 500mg, Nicotinamide Riboside 250mg and Pterostilbene 50mg Invalid Interpretation Code [facility] Work Phone: MOM HX COMM spinal compression fractures Invalid Interpretation Code [facility] Work Phone: MOTHER A/D Alive Invalid Interpretation Code [facility] Work Phone: PREPRGETOH never more than 1 glass of wine in a day Invalid Interpretation Code [facility] Work Phone: Protein mass conc Arthritis, Mitral valve prolapse Invalid Interpretation Code [facility] Work Phone: RLATNSHPINFR Self Invalid Interpretation Code [facility] Work Phone: SIS PMH COM mouth cancer Invalid Interpretation Code [facility] Work Phone: SISTERS PMH Cancer Invalid Interpretation Code [facility] Work Phone: SWHOUTYPE house Invalid Interpretation Code [facility] Work Phone: Urea nitrogen mass conc (Bld) foot surgery was bunion, left big toe Invalid Interpretation Code [facility] Work Phone: Vital Signs Date Time Vital Sign Value Performing Clinician Facility 04-27-2023 14:03-0500 Body height 1615.[address] Sarbjit Frances Work Phone: [facility] 04-27-2023 14:03-0500 Body mass index (BMI) [Ratio] 0.2 kg/m2 Dr. Sarbjit Frances Work Phone: [facility] 04-27-2023 14:03-0500 Body temperature 97.6 [degF] Dr. Sarbjit Frances Work Phone: [facility] 04-27-2023 14:03-0500 Body weight 63.[address] Sarbjit Frances Work Phone: [facility] 04-27-2023 14:03-0500 Diastolic blood pressure 81 mm[Hg] Dr. Sarbjit Frances Work Phone: [facility] 04-27-2023 14:03-0500 Heart rate 61 /min Dr. Sarbjit Frances Work Phone: [facility] 04-27-2023 14:03-0500 Respiratory rate 16 /min Dr. Sarbjit Frances Work Phone: [facility] 04-27-2023 14:03-0500 SaO2% (BldA) [Mass fraction] 98 % Dr. Sarbjit Frances Work Phone: [facility] 04-27-2023 14:03-0500 Systolic blood pressure 157 mm[Hg] Dr. Sarbjit Frances Work Phone: [facility] 03-17-2022 10:19-0500 Body height 160.02 cm MD Sarbjit Frances [facility] 03-17-2022 10:11-0500 Body mass index (BMI) [Ratio] 25.9 kg/m2 MD Sarbjit Frances [facility] 03-17-2022 10:11-0500 Body weight 66.45 kg MD Sarbjit Frances [facility] 03-17-2022 10:11-0500 Diastolic blood pressure 76 mm[Hg] MD Sarbjit Frances [facility] 03-17-2022 10:11-0500 Systolic blood pressure 134 mm[Hg] MD Sarbjit Frances [facility] NEGATED: Highlighted [id number] 09:23-0500 BMI (Body Mass Index) 22.93 kg/m2 Heidy Degarmo RT [facility] Work Phone: NEGATED: Highlighted [id number] 09:23-0500 BP Diastolic 82 mm[Hg] Heidy Degarmo RT [facility] Work Phone: NEGATED: Highlighted [id number] 09:23-0500 BP Systolic 138 mm[Hg] Heidy Degarmo RT [facility] Work Phone: NEGATED: Highlighted [id number] 09:23-0500 Height 160.02 cm Heidy Degarmo RT [facility] Work Phone: NEGATED: Highlighted [id number] 09:23-0500 Height 160 cm Heidy Degarmo RT [facility] Work Phone: NEGATED: Highlighted [id number] 09:23-0500 Pulse (Heart Rate) 59 /min Heidy Degarmo [facility] Work Phone: NEGATED: Highlighted [id number] 09:23-0500 Weight 58.51 kg Heidy Degarmo RT [facility] Work Phone: NEGATED: Highlighted [id number] 09:23-0500 Weight 59 kg Heidy Degarmo RT [facility] Work Phone: Encounters Encounter Date Encounter Type Care Provider Facility Start: 12-21-2023 End: 12-21-2023 ursula Frances Facility:[facility] Start: 10-19-2023 End: 10-19-2023 ambulatory Virginie Ghsandraul Facility:[facility] Start: 10-12-2023 End: 10-12-2023 ambulatory Virginie Mychalazoul Facility:[facility] Start: 10-01-2023 ambulatory Virginie Alvarado Facility :[facility] Start: 10-01-2023 End: 10-01-2023 ambulatory Sarbjit Frances Facility:[facility] Start: 09-21-2023 End: 09-22-2023 ambulatory Sarbjit Frances Facility:[facility] Start: 08-31-2023 End: 08-31-2023 ambulatory Sarbjit Frances Facility:[facility] Start: 06-09-2023 End: 06-09-2023 ambulatory Sarbjit Frances Facility:[facility] Start: 05-26-2023 End: 05-26-[address] Sarbjit Frances Work Phone: [facility] Work Phone: Start: 05-26-2023 End: 05-26-[address] Sarbjit Frances Work Phone: [facility] Work Phone: Start: 05-26-2023 End: 05-26-2023 ambulatory Sarbjit Frances Facility:[facility] Start: 04-27-2023 End: 04-27-[address] Sarbjit Frances Work Phone: [facility] Work Phone: Start: 04-27-2023 End: 04-27-2023 ambulatory Sarbjit Frances Facility:[facility] Start: 04-07-2022 End: 04-07-2022 ambulatory MD Sarbjit Frances [facility] Work Phone: Start: 04-07-2022 End: 04-07-2022 Patient encounter procedure MD Sarbjit Frances [facility] Start: 03-17-2022 End: 03-17-2022 Patient encounter procedure MD Sarbjit Frances [facility] Start: 05-27-2020 End: 05-27-2020 Patient encounter procedure ONESIMO GIANG [facility] Start: 05-06-2020 End: 05-06-2020 Patient encounter procedure ONESIMO GIANG [facility] Start: 02-10-2018 End: 02-10-2018 Patient encounter procedure Faraz Castellanos MD Work Phone: [facility] Work Phone: Procedures Date Procedure Procedure Detail Performing Clinician Start: 05-26-2023 Screening mammography Yoana Frances Work Phone: Start: 04-07-2022 Screening mammography Esther Frances Start: 02-10-2018 End: 02-10-2018 Blood pressure within normal parameters - no follow-up required Faraz Castellanos MD Work Phone: Start: 02-10-2018 End: 02-10-2018 BMI documented within normal parameters - no follow-up plan is required Faraz Castellanos MD Work Phone: Start: 02-10-2018 End: 02-10-2018 Documentation of current medications Faraz Castellanos MD Work Phone: Start: 02-10-2018 End: 02-10-2018 Osteoarthritis assess Faraz Castellanos MD Work Phone: Start: 02-10-2018 End: 02-10-2018 Pain assessment documented as negative - follow-up not required Faraz Castellanos MD Work Phone: Start: 02-10-2018 End: 02-10-2018 Tobacco non-user Faraz Lees Work Phone: Plan of Treatment Date Care Activity Detail Author Start: 02-10-2018 End: 02-10-2018 Appointment Appointment [facility] Work Phone: Immunizations Immunization Date Immunization Notes Care Provider Dylan bradley No information available. Heidy Cho RT [facility] Work Phone: Payers Date Payer Category Payer Medicare [id number] 2023 Self-pay [id number] 2023 Unknown [id number] 1955 Unknown [id number] 2.16.84 [id number] 1955 Unknown [id number] 2.16.84 [id number] Unknown [id number] 2.16.8 [id number] Unknown [id number] 2.16.8 [id number] Unknown [id number] 2.16.8 [id number] Unknown [id number] 2.16.8 [id number] Unknown [id number] 2.16.8 [id number] Unknown [id number] 2.16.8 [id number] Unknown [id number] 2.16.8 [id number] Unknown [id number] 2.16.8 [id number] Unknown [id number] 2.16.8 [id number] Unknown [id number] 2.16.8 [id number] Unknown [id number] 2.16.8 [id number] Social History Date Type Detail Facility Start: 03-17-2022 End: 04-27-2023 Assertion Unknown if ever smoked [facility] Work Phone: Start: 1955 Sex Assigned At Female [facility] NEGATED: Highlighted rowStart: 02-10-2018 End: 02-10-2018 Employment 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 Sarbjit Frances MD Status:[facility] Location: [place] [address] History and Physical Date of Admission: 10/01/23 Pt with bilateral dermatochalasis with obstruction of visual jean. She presents for upper blepharoplasty. There are no changes to the H P dated 09/10/23. Informed consent was obtained for bilateral upper blepharoplasty. Assessment Plan Assessment/Plan (1) Decreased peripheral vision of both eyes: (2) Dermatochalasis of both upper eyelids: PLAN: Plan Pt for bilateral upper blepharoplasty. 10/01/23 0729 Cosigner Signature (if applicable): CC: Dr. Sarbjit Frances MD; Dr. Virginie Alvarado MD Signed Good [facility] Evaluation note Note Date & Type Note Facility Evaluation note Diagnosis Onset Date Encounter for routine gyneco logical examination noneactive [facility] Work Phone: Evaluation note Note Date & Type Note Facility Evaluation note Diagnosis Onset Date Decreased peripheral vision of both eyes acute Dermatochalasis of both upper eyelids acute [facility] Work Phone: Chief Complaint Chief Complaint Description Start Date bilateral hand Preliminary chief co mplaint data, not yet signed by the author as of Instructions Instruction Description Start Date Completed Advance Directives There may be information available, but it has not been provided by the sender. No Advanced Directives Records FoundNo Advanced Directives Records FoundNo Advanced Directives Records Found Assessments There may be information available, but it has not been provided by the sender. Review of System There may be information available, but it has not been provided by the sender. Family History No Family History Records Found Relationship Condition Age at Onset Recorded Date/T ila mother Arthritis Unknown Hypertension Unknown Osteoporosis Unknown grandmother Malignant neoplasm of breast Unknown History of Present Illness There may be information available, but it has not been provided by the sender. 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 Reason for Visit Encounter for routin e gynecological examination Chief Complaint UPPER BLEPHAROPLASTY SCREENING Reason for Visit Decreased peripheral vision of both eyes Dermatochalasis of both upper eyelids Additional Source Comments Reason for Visit (unrecogniz ed section and content) Reason For Visit Description New - 1st visit with practice Preliminary reason f or visit data, not yet signed by the author as of bilateral hand INFORMATION SOURCE (unrecogn ized section and content) DATE CREATED AUTHOR 02/02/2019 [facility] DATE CREATED AUTHOR AUTHOR'S ORGANIZ ATION 06/05/[address] [facility] DATE CREATED AUTHOR AUTHOR'S ORGANIZ ATION 01/14/2024 [facility] Care Teams (unrecognized sec tion and content) Team Status: Active Member Role Status Dates Dr. Ian Bay MD Family Provider Active Sarbjit Frances MD Primary Care Provider Active Team Status: Inactive Member Role Status Dates Sarbjit Frances MD Primary Care Provider, Referring Provi delgado Active Lacey Torre LAWN SERVICE SUPERVISOR, LAWN SERVICE SUPERVISOR-C Attending Provider Active Team Status: Inactive Member Role Status Dates Sarbjit Frances MD Primary Care Provider Active Lacey Torre NP, LAWN SERVICE SUPERVISOR-C Attending Provider, Referring Provider Active Team Status: Active Member Role Status Dates Dr. Ian Bay MD Family Provider Active Dr. Sarbjit Frances MD Primary Care Provider Active Team Status: Inactive Member Role Status Dates Dr. Sarbjit Frances MD Primary Care Provider, Referring P rovider Active Dr. Virginie Alvarado MD Attending Provider Active Team Status: Inactive Member Role Status Dates Dr. Sarbjit Frances MD Primary Care Provider Active Lacey Torre NP, LAWN SERVICE SUPERVISOR-C Attending Provider, Referring Provider Active Goals (unrecognized section and content) Goals may be documented in a n alternate sectionGoals may be documented in an alternate section FOR RECORDS PERTAINING TO PATIENTS WHO ARE OR HAVE BEEN ENROLLED IN A CHEMICAL DEPENDENCY/SUBSTANCEABUSE PROGRAM, SOME INFORMATION MAY BE OMITTED. This clinical summary was aggregated from multiple sources. Caution should be exercised in using it in the provision of clinical care. This summary normalizes information from multiple sources, and as a consequence, information in this document may materially change the coding, format and clinical context of patient data. In addition, data may be omitted in some cases. CLINICAL DECISIONS SHOULD BE BASED ON THE PRIMARY CLINICAL RECORDS. [employer] provides no warranty or guarantee of the accuracy or completeness of information in this document.
[2024-11-23 10:53] LABS: Creatinine, Urine (random) 91.10 mg/dL (28.00-217.00); Microalbumin,Random Urine < 12.0 mg/L (<20 mg/L)
[2024-11-23 11:06] LABS: AST(SGOT) 20 U/L (<=31); Alanine Aminotransfer ALT/SGPT 15 U/L (<=34); Albumin, Serum 4.2 g/dL (3.4-4.8); Alkaline Phosphatase 87 U/L (35-104); Anion Gap 11 (5-15); BUN 15 mg/dL (4-19); BUN/Creat Ratio 19.2 RATIO (10-20); Calcium,Total 9.1 mg/dL (7.6-11.0); Carbon Dioxide 23.1 mmol/L (21.0-32.0); Chloride 106 mmol/L (98-108); Globulin 2.6 g/dL (2.2-4.2); Glucose 95 mg/dL (70-99); Magnesium 2.3 mg/dL (1.5-2.2); Potassium 4.1 mmol/L (3.3-5.1); Vitamin D,25 Hydroxy 26.9 ng/mL (30-100)
== END | disposition home or self-care (01) ==
LOC: MFPLAB 08:09
PROVIDERS: PCP Family Medicine; Visit Provider Family Medicine
DX: I10 Essential (primary) hypertension (principal); M85.80 Other specified disorders of bone density and structure, unspecified site
CPT/HCPCS: 36415; 80053; 82043; 82306; 82570; 83735

== ENCOUNTER → 2025-02-13 | Outpatient (CLI) | payer MEDICARE, BC, SELFPAY ==
--- NOTE | 2025-02-13 08:00 | BI_ITS ---
EXAM: SCRN MAMM (CAD)W/BRAD BILAT DATE: 02/13/2025 CLINICAL HISTORY: F, Age 69 y/o , SCREEN FOR BREAST CANCER Grandmother with breast cancer. Remote left breast biopsy. TECHNIQUE: Procedure Code: [id number] Modality: MG Procedure: SCRN MAMM (CAD)W/BRAD BILAT COMPARISON: Prior exam(s) dated May 26, 2023.. FINDINGS: TISSUE DENSITY: The breasts are heterogeneously dense, which may obscure small masses. Bilateral Breast Mammographic Findings: No significant masses, calcifications or other abnormalities are identified. No suspicious masses, areas of developing architectural distortion, or suspicious calcifications. There has been no significant interval change. BI/SCRN MAMM (CAD)W/BRAD BILAT IMPRESSION: Stable bilateral screening mammogram. OVERALL FINAL ASSESSMENT BI-RADS 1: NEGATIVE. RECOMMENDATION: Routine annual follow-up in 1 Year Additional Recommendation none A letter with findings and recommendations will be mailed to the patient. Reading Location: [facility]
== END | disposition home or self-care (01) ==
LOC: OPBI 07:59
PROVIDERS: PCP Family Medicine; Referring Provider Nurse Practitioner Women's Health; Visit Provider Nurse Practitioner Women's Health
DX: Z12.31 Encounter for screening mammogram for malignant neoplasm of breast (principal)
CPT/HCPCS: 77063; 77067